=== PATIENT | female | born 1990 | race Caucasian/White ===

== ENCOUNTER 2017-02-07 14:06 | Emergency (ER) | payer BC, MEDICAID ==
[~2017-02-07] VITALS: Ht 170.2 cm; Wt 65.8 kg
[~2017-02-07 14:06] MED LIST: BIRTH CONTROL; HYDR-3812 PO; HYDR1CAP2; MDR10T PO
[2017-02-07 14:36] LABS: BILIRUBIN,URINE NEGATIVE (NEGATIVE); KETONES,URINE NEGATIVE (NEGATIVE); LEUKOCYTE ESTERASE ,URINE 2+ (NEGATIVE); NITRITE,URINE POSITIVE (NEGATIVE); PH,URINE 7 (5-9); PROTEIN,URINE 2+ (NEGATIVE); UROBILINOGEN,URINE NORMAL (NORMAL)
[2017-02-07 14:42] LABS: SQUAMOUS EPITHELIAL CELL,UR RARE /HPF; WBC,URINE 0-2 /HPF
[2017-02-07] MEDS ORDERED: CEPH500T PO (15:29)
[2017-02-07] MEDS ORDERED: METR500T21 PO (15:29)
--- NOTE | 2017-02-07 15:29 | ED GU-Female ---
General Chief Complaint: Abdominal/GI Problems Stated Complaint: PELVIC/ABD PAIN, CRAMPS Nursing Triage Note: c/o low abd pain with chills/nausea. Onset yesterday. Had vaginal discharge. Pt unsure if she started her menstrual cycle. Nursing Sepsis Screen: No Definite Risk Source: patient Exam Limitations: no limitations History of Present Illness Time seen by provider: 14:50 Initial Comments Here with report of chills and nausea. Had some suprapubic pain and some vaginal discharge with a little blood. She is not sure she started her period but states it never feels like this. Had a woman's health exam a few months ago and did not have any sexually-transmitted diseases. She has a single partner and they do not use condoms. She does not believe she has sexually- transmitted disease. Unsure about . Denies vomiting. Denies pain with urination. Denies difficulties with bowel movements. Timing/Duration: yesterday Severity/Quality: moderate, aching Location: suprapubic Radiation: none Activities at Onset: none Sexual [place] History: less than 2 months ago, single partner Associated Symptoms: abdominal pain, No fever/chills, No lower back pain, nausea/vomiting, No urinary frequency Allergies and Home Medications Allergies Coded Allergies: No Known Drug Allergies (Unverified , 03/05/09) Home Medications Hydrocodone/Acetaminophen 1 Each Tablet, 1-2 EACH PO Q6H PRN for PAIN, #12 Prescribed by: KRISSY GARCIA on 07/15/15 1300 Constitutional: see HPI, chills, No fever EENTM: no symptoms reported Respiratory: no symptoms reported Cardiovascular: no symptoms reported Gastrointestinal: see HPI Genitourinary: see HPI, discharge : No Musculoskeletal: no symptoms reported, No back pain, No muscle pain Skin: No lesions, No rash Past Hajchle-Audtes-Dracnt Hx Patient Social History Alcohol Use: Denies Use Recreational Drug Use: No Smoking Status: Current Everyday Smoker Recent Foreign Travel: No Contact w/Someone Who Travel: No Recent Infectious Disease Expo: No Recent Hopitalizations: Yes Surgeries History of Surgeries: Yes (tonsilectomy) Respiratory History of Respiratory Disorde: No Cardiovascular History of Cardiac Disorders: No Neurological History of Neurological Disord: No Reproductive System Hx Reproductive Disorders: No Sexually Transmitted Disease: No Gastrointestinal History of Gastrointestinal Di: No Musculoskeletal History of Musculoskeletal Dis: No Endocrine History of Endocrine Disorders: No Psychosocial History of Psychiatric Problem: No Blood Transfusions History of Blood Disorders: No Reviewed Nursing Assessment Reviewed/Agree w Nursing PMH: Yes Physical Exam Vital Signs Vital Sign - Last 12Hours 02/07/17 14:35 Temp 99.5 Pulse 90 Resp 16 B/P (MAP) 145/84 Pulse Ox 98 O2 Delivery Room Air Capillary Refill : Less Than 3 Seconds General Appearance: WD/WN, no apparent distress Neck: full range of motion, supple Cardiovascular: regular rate, rhythm, no murmur Respiratory: lungs clear, normal breath sounds Gastrointestinal: soft, tenderness (suprapubic) Pelvic: other (patient declined pelvic exam) Extremities: normal range of motion, non-tender Neurologic/Psychiatric: alert, oriented x 3 Skin: normal color, warm/dry Progress/Results/Core Measures Results/Orders Lab Results Laboratory Tests Test 02/07/17 14:30 Range/Units Urine Color RED H Urine Clarity BLOODY H Urine pH 7 5-9 Urine Specific [employer] 1.010 L 1.016-1.022 Urine Protein 2+ H NEGATIVE Urine Glucose (UA) NEGATIVE NEGATIVE Urine Ketones NEGATIVE NEGATIVE Urine Nitrite POSITIVE H NEGATIVE Urine Bilirubin NEGATIVE NEGATIVE Urine Urobilinogen NORMAL NORMAL MG/DL Urine Leukocyte Esterase 2+ H NEGATIVE Urine RBC (Auto) 5+ H NEGATIVE Urine RBC TNTC H /HPF Urine WBC 0-2 /HPF Urine Squamous Epithelial Cells RARE /HPF Urine Crystals NONE /LPF Urine Bacteria NEGATIVE /HPF Urine Casts NONE /LPF Urine Mucus NEGATIVE /LPF Urine Culture Indicated NO My Orders Orders - KRISSY GARCIA MD Ua Culture If Indicated (02/07/17 14:30) Urine Bedside (02/07/17 14:31) Urine Culture (02/07/17 15:18) Vital Signs/I&O Vital Sign - Last 12Hours 02/07/17 14:35 Temp 99.5 Pulse 90 Resp 16 B/P (MAP) 145/84 Pulse Ox 98 O2 Delivery Room Air Blood Pressure Mean: 104 Point of Care Testing Urine -Bedside: Negative Progress Note : Progress Note Seen and evaluated. UA and UCG ordered. UCG negative. UA is nitrite positive with some blood. There are no whites or bacteria on this urine sample although I am suspicious that there is a urinary tract infection. I did discuss with the patient about my concerns related to possible pelvic infection. She has declined pelvic and has elected to defer until she sees her doctor on Thursday. She will call Dr. Hernández on Thursday morning for appointment. This is reasonable given the relatively new onset of this concern but patient may likely need a pelvic exam to rule out further pelvic pathology. This is discussed with the patient and she agrees and understands and will follow up with her doctor. In the interim we will start her on Keflex for urinary tract infection and Flagyl as this may be bacterial vaginosis. Discharged home with return precautions. Patient verbalize understanding instructions and agreement with plan. Departure Impression Impression: Primary Impression: Urinary tract infection Qualified Codes: N30.01 - Acute cystitis with hematuria Disposition: HOME, SELF-CARE Condition: Improved Departure-Patient Inst. Decision time for Depature: 15:27 Referrals: ABBY HERNÁNDEZ MD (PCP/Family) Primary Care Physician Patient Instructions: Bacterial Vaginosis (DC), Urinary Tract Infection, Adult (DC) Add. Discharge Instructions: All discharge instructions reviewed with patient and/or family. Voiced understanding. Take medications as directed. Drink plenty of fluids. You may take Tylenol 1000 mg every 8 hours as needed for pain. You may take ibuprofen 800 mg every 8 hours as needed for pain. Follow-up with Dr. Hernández on Thursday. Return for worse pain, fever, vomiting, weakness, breathing problems or other concerns as needed. Scripts Metronidazole (Metronidazole) 500 Mg Tablet 500 MG PO BID, #14 TAB 0 Refills Prov: KRISSY GARCIA MD 02/07/17 Cephalexin (Cephalexin) 500 Mg Tablet 500 MG PO BID, #14 TAB 0 Refills Prov: KRISSY GARCIA MD 02/07/17 Copy Copies To 1: ABBY HERNÁNDEZ MD, TIMOTHY D MD Feb 07, 2017 15:29
[2017-02-07 15:54] VITALS: BP 116/70
== END 2017-02-07 15:54 | disposition home or self-care (01) ==
LOC: EDUNIT# 14:06 → ER 14:07
DX: N39.0 Urinary tract infection, site not specified (principal); F17.210 Nicotine dependence, cigarettes, uncomplicated; Z90.89 Acquired absence of other organs
CPT/HCPCS: 81000; 84703; 87088; 99282

== ENCOUNTER 2017-11-24 12:26 | Outpatient (CLI) | payer BC, MEDICAID ==
[~2017-11-24] VITALS: Ht 167.6 cm; Wt 82.3 kg
[~2017-11-24 12:26] MED LIST changes: +ACHD5005 PO; +CEPH500T PO; -HYDR-3812 PO; +METR500T21 PO
[2017-11-24 12:35] VITALS: BP 132/89
[2017-11-24] MEDS ORDERED: PREN1TAB86 PO (13:06)
--- NOTE | 2017-11-26 10:22 | Physician Query-Final Dx ---
[facility] 11/26/17 1022: Clinic Account Progress/Dx Physician Query: Please give diagnosis Date of Service Nov 24, 2017 at 12:26 MATTHEW JAY MD 11/27/17 1153: Clinic Account Progress/Dx DIAGNOSIS: Diagnosis false labor [facility] Nov 26, 2017 10:22 MATTHEW JAY MD Nov 27, 2017 11:53
== END 2017-11-24 13:17 | disposition home or self-care (01) ==
LOC: LDRP 12:26 → WSo 12:26
PROVIDERS: ATTEND Obstetrics & Gynecology
DX: O47.03 False labor before 37 completed weeks of gestation, third trimester (principal); Z3A.34 34 weeks gestation of pregnancy
CPT/HCPCS: 99212

== ENCOUNTER 2017-12-22 11:24 | Outpatient (CLI) | payer BC, MEDICAID ==
[~2017-12-22] VITALS: Ht 167.6 cm; Wt 82.6 kg
[~2017-12-22 11:24] MED LIST changes: +PREN1TAB86 PO
[2017-12-22 11:46] VITALS: BP 130/86
[2017-12-26] MEDS ORDERED: DOCU100C37 PO (09:13)
[2017-12-26] MEDS ORDERED: OXYC-465 PO (09:13)
[2017-12-26] MEDS ORDERED: IBUP-1780 PO (09:13)
== END 2017-12-22 11:45 | disposition home or self-care (01) ==
LOC: PREOP 11:24
PROVIDERS: ATTEND Obstetrics & Gynecology
DX: Z01.818 Encounter for other preprocedural examination (principal)
CPT/HCPCS: 87081

== ENCOUNTER 2017-12-25 11:05 | Inpatient (IN) | payer BC, MEDICAID ==
[~2017-12-25] VITALS: Ht 165.1 cm; Wt 83.0 kg
[2017-12-25 11:10] VITALS: BP 143/75
--- OUTSIDE RECORDS SUMMARY | 2017-12-25 11:14 | XMS REPORT | Continuity of Care Document ---
Author Author [facility] Organization [facility] Address Unknown Phone Unavailable Allergies Active Description Code Type Severity Reaction Onset Reported/Identified Relationship to Patient Clinical Status Yes No Known Drug Allergies [id number] Drug Allergy Mild N/A 03/05/2009 Medications There is no data. Problems Date Dx Coded Attending Type Code Diagnosis Diagnosed By 09/16/2009 Ot 641.21 JOHN SEPAR PLACEN-DELIV 09/16/2009 Ot 659.71 ABN DEL FET HT RT/RHYTHM,W OR W/O MENTIO 09/16/2009 Ot V27.0 DELIVER- SINGLE LIVEBORN 10/27/2009 Ot 623.8 10/27/2009 Ot 666.24 05/30/2014 Ot 685.1 05/30/2014 Ot V72.83 05/30/2014 Ot V74.8 05/30/2014 Ot 685.0 05/30/2014 Ot 649.63 05/30/2014 Ot 649.63 05/30/2014 Ot 649.63 05/30/2014 Ot 685.1 05/30/2014 Ot V72.83 05/30/2014 Ot V74.8 05/30/2014 Ot 685.1 10/19/2014 Ot 649.63 10/19/2014 Ot 649.63 10/19/2014 Ot 685.1 10/19/2014 Ot V72.83 10/19/2014 Ot V74.8 10/19/2014 Ot 685.1 10/24/2014 DOROTA GREER, KEYSHAWN Narayan Ot 724.2 10/24/2014 DOROTA GREER, KEYSHAWN Narayan Ot 780.79 10/24/2014 DOROTA GREER, KEYSHAWN Narayan Ot V18.0 11/03/2014 DOROTA GREER, KEYSHAWN Narayan Ot 724.2 11/03/2014 DOROTA GREER, KEYSHAWN Narayan Ot 780.79 11/03/2014 KEYSHAWN RAYA MD Ot V18.0 11/20/2014 Ot 649.63 11/20/2014 Ot 649.63 11/20/2014 Ot 685.1 11/20/2014 Ot V72.83 11/20/2014 Ot V74.8 11/20/2014 Ot 685.1 11/20/2014 DOROTA GREER, KEYSHAWN Narayan Ot 724.2 11/20/2014 DOROTA GREER, KEYSHAWN Narayan Ot 780.79 11/20/2014 DOROTA GREER, KEYSHAWN Narayan Ot V18.0 01/02/2015 DOROTA GREER, KEYSHAWN Narayan Ot 722.52 LUMB/LUMBOSAC DISC DEGEN 01/02/2015 DOROTA GREER, KEYSHAWN Narayan Ot V57.1 PHYSICAL THERAPY NEC 06/13/2015 DOROTA GREER, KEYSHAWN Narayan Ot 724.2 06/13/2015 DOROTA GREER, KEYSHAWN Narayan Ot 780.79 06/13/2015 DOROTA GREER, KEYSHAWN Narayan Ot V18.0 06/29/2015 DOROTA GREER, KEYSHAWN Narayan Ot 724.2 06/29/2015 KEYSHAWN RAYA MD Ot 780.79 06/29/2015 DOROTA GREER, KEYSHAWN Narayan Ot V18.0 07/15/2015 DOROTA GREER, KEYSHAWN Narayan Ot 724.2 07/15/2015 DOROTA GREER, KEYSHAWN Narayan Ot 780.79 07/15/2015 KEYSHAWN RAYA MD Ot V18.0 07/15/2015 KRISSY GARCIA MD Ot E86.9 VOLUME DEPLETION, UNSPECIFIED 07/15/2015 KRISSY GARCIA MD Ot E87.6 HYPOKALEMIA 07/15/2015 KRISSY GARCIA MD Ot F17.210 NICOTINE DEPENDENCE, CIGARETTES, UNCOMPL 07/15/2015 KRISSY GARCIA MD Ot J06.9 ACUTE UPPER RESPIRATORY INFECTION, UNSPE 07/15/2015 KEYSHAWN RAYA MD Ot 724.2 07/15/2015 KEYSHAWN RAYA MD Ot 780.79 07/15/2015 KEYSHAWN RAYA MD Ot V18.0 07/17/2015 KRISSY GARCIA MD Ot E86.9 07/17/2015 KRISSY GARCIA MD Ot E87.6 07/17/2015 KRISSY GARCIA MD Ot F17.210 07/17/2015 KRISSY GARCIA MD Ot J06.9 07/17/2015 KEYSHAWN RAYA MD Ot 724.2 07/17/2015 KEYSHAWN RAYA MD Ot 780.79 07/17/2015 DOROTA GREER, KEYSHAWN Narayan Ot V18.0 07/17/2015 DOROTA GREER, KEYSHAWN Narayan Ot 724.2 07/17/2015 DOROTA GREER, KEYSHAWN Narayan Ot 780.79 07/17/2015 DOROTA GREER, KEYSHAWN Narayan Ot V18.0 07/31/2015 DOROTA GREER, KEYSHAWN Narayan Ot 724.2 07/31/2015 DOROTA GREER, KEYSHAWN Narayan Ot 780.79 07/31/2015 DOROTA GREER, KEYSHAWN Narayan Ot V18.0 08/01/2015 DOROTA GREER, KEYSHAWN Narayan Ot M54.5 08/16/2015 DOROTA GREER, KEYSHAWN Narayan Ot M54.5 LOW BACK PAIN 12/25/2015 DOROTA GREER, KEYSHAWN Narayan Ot 724.2 LUMBAGO 12/25/2015 DOROTA GREER, KEYSHAWN Narayan Ot 780.79 OTH MALAISE FATIGUE 12/25/2015 DOROTA GREER, KEYSHAWN Narayan Ot V18.0 FAM HX-DIABETES MELLITUS 12/25/2015 DOROTA GREER, KEYSHAWN Narayan Ot M54.5 LOW BACK PAIN 12/27/2015 INEZ CROWDER DO Ot M54.16 RADICULOPATHY, LUMBAR REGION 01/09/2016 INEZ CROWDER DO Ot M54.16 RADICULOPATHY, LUMBAR REGION 01/09/2016 DOROTA GREER, KEYSHAWN Narayan Ot 724.2 LUMBAGO 01/09/2016 DOROTA GREER, KEYSHAWN Narayan Ot 780.79 OTH MALAISE FATIGUE 01/09/2016 DOROTA GREER, KEYSHAWN Narayan Ot V18.0 FAM HX-DIABETES MELLITUS 01/09/2016 DOROTA GREER, KEYSHAWN Narayan Ot M54.5 LOW BACK PAIN 01/09/2016 INEZ CROWDER DO Ot M54.16 RADICULOPATHY, LUMBAR REGION 01/14/2016 DOROTA GREER, KEYSHAWN Narayan Ot 724.2 LUMBAGO 01/14/2016 DOROTA GREER, KEYSHAWN Narayan Ot 780.79 OTH MALAISE FATIGUE 01/14/2016 DOROTA GREER, KEYSHAWN Narayan Ot V18.0 FAM HX-DIABETES MELLITUS 01/14/2016 DOROTA GREER, KEYSHAWN Narayan Ot M54.5 LOW BACK PAIN 01/14/2016 INEZ CROWDER DO Ot M54.16 RADICULOPATHY, LUMBAR REGION 01/17/2016 DOROTA GREER, KEYSHAWN Narayan Ot 724.2 LUMBAGO 01/17/2016 DOROTA GREER, KEYSHAWN Narayan Ot 780.79 OTH MALAISE FATIGUE 01/17/2016 KEYSHAWN RAYA MD Ot V18.0 FAM HX-DIABETES MELLITUS 01/17/2016 KEYSHAWN RAYA MD Ot M54.5 LOW BACK PAIN 01/17/2016 LAKESHA INEZ YE Ot M54.16 RADICULOPATHY, LUMBAR REGION 03/19/2016 KEYSHAWN RAYA MD Ot 724.2 LUMBAGO 03/19/2016 KEYSHAWN RAYA MD Ot 780.79 OTH MALAISE FATIGUE 03/19/2016 KEYSHAWN RAYA MD Ot V18.0 FAM HX-DIABETES MELLITUS 03/19/2016 KEYSHAWN RAYA MD Ot M54.5 LOW BACK PAIN 03/19/2016 INEZ CROWDER DO Ot M54.16 RADICULOPATHY, LUMBAR REGION 03/20/2016 EDGAR GREER, ABBY C Ot N64.4 MASTODYNIA 03/20/2016 ABBY HERNÁNDEZ MD C Ot N64.4 MASTODYNIA 04/02/2016 EDGAR GREER, ABBY C Ot N64.4 MASTODYNIA 02/07/2017 KEYSHAWN RAYA MD Ot 724.2 LUMBAGO 02/07/2017 KEYSHAWN RAYA MD Ot 780.79 OTH MALAISE FATIGUE 02/07/2017 KEYSHAWN RAYA MD Ot V18.0 FAM HX-DIABETES MELLITUS 02/07/2017 KEYSHAWN RAYA MD Ot M54.5 LOW BACK PAIN 02/07/2017 INEZ CROWDER DO Ot M54.16 RADICULOPATHY, LUMBAR REGION 02/07/2017 EDGAR GREER, ABBY C Ot N64.4 MASTODYNIA 02/07/2017 KRISSY GARCIA MD Ot F17.210 NICOTINE DEPENDENCE, CIGARETTES, UNCOMPL 02/07/2017 KRISSY GARCIA MD Ot N39.0 URINARY TRACT INFECTION, SITE NOT SPECIF 02/07/2017 KRISSY GARCIA MD Ot R11.0 NAUSEA 02/07/2017 KRISSY GARCIA MD Ot Z90.89 ACQUIRED ABSENCE OF OTHER ORGANS 04/28/2017 KEYSHAWN RAYA MD Ot 724.2 LUMBAGO 04/28/2017 KEYSHAWN RAYA MD Ot 780.79 OTH MALAISE FATIGUE 04/28/2017 KEYSHAWN RAYA MD Ot V18.0 FAM HX-DIABETES MELLITUS 04/28/2017 KEYSHAWN RAYA MD Ot M54.5 LOW BACK PAIN 04/28/2017 INEZ CROWDER DO Ot M54.16 RADICULOPATHY, LUMBAR REGION 04/28/2017 EDGAR GREER, ABBY Ko Ot N64.4 MASTODYNIA 07/12/2017 KEYSHAWN RAYA MD Ot 724.2 LUMBAGO 07/12/2017 KEYSHAWN RAYA MD Ot 780.79 OTH MALAISE FATIGUE 07/12/2017 KEYSHAWN RAYA MD Ot V18.0 FAM HX-DIABETES MELLITUS 07/12/2017 KEYSHAWN RAYA MD Ot M54.5 LOW BACK PAIN 07/12/2017 LAKESHA INEZ Ot M54.16 RADICULOPATHY, LUMBAR REGION 07/12/2017 EDGAR GREER, ABBY Ko Ot N64.4 MASTODYNIA 11/03/2017 KEYSHAWN RAYA MD Ot 724.2 LUMBAGO 11/03/2017 KEYSHAWN RAYA MD Ot 780.79 OTH MALAISE FATIGUE 11/03/2017 KEYSHAWN RAYA MD Ot V18.0 FAM HX-DIABETES MELLITUS 11/03/2017 KEYSHAWN RAYA MD Ot M54.5 LOW BACK PAIN 11/03/2017 LAKESHA DO INEZ Chris Ot M54.16 RADICULOPATHY, LUMBAR REGION 11/03/2017 EDGAR GREER, ABBY Ko Ot N64.4 MASTODYNIA Procedures Code Description Performed By Performed On 74.1 LOW CERVICAL 09/14/2009 Results Test Result Range Complete urinalysis with reflex to culture - 02/07/17 14:30 Urine color determination RED NRG Urine clarity determination BLOODY NRG Urine pH measurement by test strip 7 5-9 Specific gravity of urine by test strip 1.010 1.016- 1.022 Urine protein assay by test strip, semi-quantitative 2+ NEGATIVE Urine glucose detection by automated test strip NEGATIVE NEGATIVE Erythrocytes detection in urine sediment by light microscopy 5+ NEGATIVE Urine ketones detection by automated test strip NEGATIVE NEGATIVE Urine nitrite detection by test strip POSITIVE NEGATIVE Urine total bilirubin detection by test strip NEGATIVE NEGATIVE Urine urobilinogen measurement by automated test strip (mass/volume) NORMAL NORMAL Urine leukocyte esterase detection by dipstick 2+ NEGATIVE Automated urine sediment erythrocyte count by microscopy (number/high power field) TNTC NRG Automated urine sediment leukocyte count by microscopy (number/high power field ) [HPF] NRG Bacteria detection in urine sediment by light microscopy NEGATIVE NRG Squamous epithelial cells detection in urine sediment by light microscopy RARE NRG Crystals detection in urine sediment by light microscopy NONE NRG Casts detection in urine sediment by light microscopy NONE NRG Mucus detection in urine sediment by light microscopy NEGATIVE NRG Complete urinalysis with reflex to culture NO NRG Bacterial urine culture - 02/07/17 14:30 URINE CULTURE RESULTS MORE THAN 3 ISOLATES NRG Encounters ACCT No. Visit Date/Time Discharge Status Pt. Type Provider Facility Loc./Unit Complaint [id number] 02/07/2017 14:07:00 02/07/2017 15:54:00 DIS Emergency KRISSY GARCIA MD [facility] ER PELVIC/ABD PAIN, CRAMPS [id number] 03/19/2016 14:00:00 03/19/2016 23:59:59 CLS Outpatient ABBY HERNÁNDEZ MD [facility] RAD LT OUTER ASPECT BREAST PAIN [id number] 12/25/2015 11:13:00 12/25/2015 23:59:59 CLS Outpatient INEZ CROWDER DO [facility] RAD RADICULOPATHY [id number] 07/31/2015 12:43:00 07/31/2015 23:59:59 CLS Outpatient KEYSHAWN RAYA MD [facility] RAD LOW BACK PAIN,UPPER BACK PAIN [id number] 07/15/2015 09:22:00 07/15/2015 13:10:00 DIS Emergency KRISSY GARCIA MD [facility] ER FLU SYMPTOMS [id number] 12/11/2014 08:29:00 01/02/2015 09:35:00 DIS Outpatient KEYSHAWN RAYA MD [facility] REHAB LOW BACK PAIN;DDD; NARROWING L1-2 L2-3 [id number] 10/19/2014 10:16:00 10/19/2014 23:59:59 CLS Outpatient KEYSHAWN RAYA MD [facility] RAD LOW BACK PAIN,PRESSURE, FATIGUE,FAM HX DIABETES [id number] 12/28/2017 13:00:00 PEN Preadmit PIERRE GREER, MATTHEW Boudreaux PREVIOUS [id number] 05/30/2014 09:04:00 Document Registration [id number] 11/13/2009 05:44:00 Document Registration [id number] 11/09/2009 08:10:00 Document Registration [id number] 10/26/2009 20:06:00 Document Registration [id number] 09/14/2009 12:11:00 Document Registration [id number] 08/02/2009 13:51:00 Document Registration [id number] 06/14/2009 14:47:00 Document Registration [id number] 03/20/2009 13:51:00 Document Registration [id number] 03/05/2009 09:42:00 Document Registration [id number] 02/06/2009 16:22:00 Document Registration [id number] 12/11/2014 08:29:14 ACT Document Registration
[2017-12-25] MEDS ORDERED: OXYTOCIN/NORMAL SALINE 500 ML IV ONE ×2 (11:26→12:51)
[2017-12-25] MEDS ORDERED: BUPIVACAINE SPINAL 0.75% (SENSORCAINE) 2 ML AMP ONE (11:26)
[2017-12-25] MEDS ORDERED: LIDOCAINE PF 2% 5 ML (XYLOCAINE) VIAL ONE (11:26)
[2017-12-25] MEDS ORDERED: ceFAZolin 2 GM IV Premixed 50 ML ONE (11:27)
[2017-12-25] MEDS ORDERED: metroNIDAZOLE 500MG/100ML IVPB 100 ML ONE (11:27)
[2017-12-25] MEDS ORDERED: CITRIC ACID/SOB CIT (BICITRA) 30 ML UDC ONE (11:27)
[2017-12-25] MEDS ORDERED: raNItidine 50 MG/2 ML INJ (ZANTAC) ONE (11:27)
[2017-12-25] MEDS ORDERED: raNItidine INJECTION 50 MG in NS (IVPB) 50 ML IV ONE (11:30)
[2017-12-25] MEDS ORDERED: ceFAZolin 2 GM IV Premixed 50 ML IV ONE ×3 (11:30→12:15)
[2017-12-25] MEDS ORDERED: CITRIC ACID/SOB CIT (BICITRA) 30 ML UDC PO ONE (11:30)
[2017-12-25] MEDS ORDERED: metroNIDAZOLE 500MG/100ML IVPB 100 ML IV ONE ×3 (11:30→12:15)
[2017-12-25] MEDS ORDERED: CATHETER FLUSH 10 ML SYR IV PRN (11:30)
[2017-12-25] MEDS ORDERED: METOCLOPRAMIDE INJ 10 MG/2 ML (REGLAN) IV ONE (11:30)
[2017-12-25 11:31] LABS: BASOPHILS % (AUTO) 0 % (0-10); EOSINOPHILS # (AUTO) 0.2 10^3/uL (0.0-0.3); EOSINOPHILS % (AUTO) 1 % (0-10); HEMATOCRIT 39 % (35-52); LYMPHOCYTES # (AUTO) 2.9 X 10^3 (1.0-4.0); LYMPHOCYTES % (AUTO) 13 % (12-44); MEAN CORPUSCULAR HEMOGLOBIN 32 PG (25-34); MEAN CORPUSCULAR HGB CONC 36 G/DL (32-36); MEAN CORPUSCULAR VOLUME 89 FL (80-99); MEAN PLATELET VOLUME 12.6 FL (7.4-10.4); MONOCYTES # (AUTO) 1.7 X 10^3 (0.0-1.0); MONOCYTES % (AUTO) 8 % (0-12); NEUTROPHILS # (AUTO) 17.1 X 10^3 (1.8-7.8); NEUTROPHILS % (AUTO) 78 % (42-75); PLATELET COUNT 293 10^3/uL (130-400); RED BLOOD COUNT 4.42 10^6/uL (4.35-5.85); RED CELL DISTRIBUTION WIDTH 13.6 % (10.0-14.5); WHITE BLOOD COUNT 21.8 10^3/uL (4.3-11.0)
[2017-12-25] MEDS ORDERED: fentaNYL INJECTION 100 MCG/2 ML AMP ONE (11:31)
[2017-12-25] MEDS ORDERED: NS (IVPB) 50 ML ONE (11:33)
[2017-12-25] MEDS: LACTATED RINGERS 1,000 ML IV PRN ×2 (11:37→12:30)
[2017-12-25 11:40] VITALS: BP 123/81
[2017-12-25 11:59] LABS: BAND NEUTROPHILS 0 %; BASOPHILS % (MANUAL) 0 %; EOSINOPHILS % (MANUAL) 0 %; LYMPHOCYTES % (MANUAL) 8 %; MONOCYTES % (MANUAL) 3 %; NEUTROPHILS % (MANUAL) 84 %
[2017-12-25 12:00] LABS: RBC MORPH NORMAL; REACTIVE LYMPHOCYTES 5 %
[2017-12-25] MEDS ORDERED: MEASLES,MUMPS,RUBELLA 1 EA INJ SC ONE (12:15)
[2017-12-25] MEDS ORDERED: ONDANSETRON 4 MG/2 ML (SDV) Z0FRAN IVP PRN ×2 (12:15→13:30)
[2017-12-25] MEDS ORDERED: PROMETHAZINE INJ 25 MG/ML (PHENERGAN) AMP IM PRN (12:15)
[2017-12-25] MEDS ORDERED: TETANUS,DIPTH,PERTUSS P/F (BOOSTRIX) 0.5 ML VIAL IM ONE (12:15)
[2017-12-25] MEDS ORDERED: MEPERIDINE (DEMEROL) INJ 100 MG/ML IM PRN (12:15)
[2017-12-25] MEDS ORDERED: LACTATED RINGERS 1,000 ML IV SCH (12:15)
[2017-12-25] MEDS ORDERED: D5 LR IV SOLUTION 1,000 ML IV ONE (12:19)
--- NOTE | 2017-12-25 12:19 | History & Physical ---
History and Physical Date Seen by Provider: Dec 25, 2017 Time Seen by Provider: 12:16 This patient is a 27-year-old 1 white female presented to my clinic with late of contractions pain and pressure and a sensation of tearing above her pubic bone. 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 She denied ruptured membranes or bleeding. She had been scheduled for tooth extraction secondary to a dental abscess but has not had that done as of yet. NST was performed in my clinic with findings of contractions every 1-3 minutes. Her cervix was dilated to 2+ centimeters which was a change from her exam 2 days prior. Patient had GBS culture that was negative after 35 weeks gestation. Patient was sent to labor and delivery for management. Allergies are none Medications are vitamins and an oral antibiotic for dental abscess Social surgical histories are per the antepartum record HEENT exam is normal Neck is supple no lymphadenopathy no thyromegaly Abdomen gravid soft nontender nondistended Extremities show no clubbing cyanosis. There is no Homans sign. Pelvic exam repeat now shows a cervix almost 3 cm dilated still 70 percent effaced and 0 to -1 station with bloody show. monitor normal heart rate pattern with occasional contractions every 2 minutes Laboratory Tests 12/25/17 11:20 Patient white blood cell count is elevated Assessment and plan term at 38-5/7 weeks' gestation in patient with dental abscess and elevated white blood cell count. She is having regular contractions and is at risk for uterine rupture and that could be an ongoing process with the complaint of the tearing sensation above her pubic bone. She has some bloody show this is probably from dilation although it could be from uterine scar dehiscence as well. Patient has eaten in less than 8 hours anesthesia expression patient about that have her presentation her constellation of symptoms and signs I requested that would be allowed to proceed with delivery and accepted the risks of not having a full 8 hours of being prior to anesthetic and delivery. Term 38-5/7 weeks' gestation with leukocytosis/dental abscess/labor/ previous Allergies and Home Medications Allergies Coded Allergies: No Known Drug Allergies (Unverified , 03/05/09) Home Medications Vit W-Ca,Fe,FA(<1 mg) 1 Each Tablet, 1 EACH PO DAILY, (Reported) Patient Home Medication List Home Medication List Reviewed: Yes Clinical Quality Measures DVT/VTE Risk/Contraindication: Risk Factor Score Per Nursin RFS Level Per Nursing on Admit: 2=Moderate MATTHEW JAY MD Dec 25, 2017 12:19 pm
[2017-12-25] MEDS ORDERED: ONDANSETRON 4 MG/2 ML (SDV) Z0FRAN ONE (12:38)
[2017-12-25] MEDS ORDERED: GLYCOPYRROLATE 0.2 MG/ML (ROBINUL) 2 ML VIAL ONE (12:38)
[2017-12-25] MEDS ORDERED: PHENYLEPHRINE 100 MCG/ML 10 ML (ANESTHESIA) SYR ONE (12:47)
[2017-12-25] MEDS ORDERED: ROPIVACAINE 5MG/ML 30ML VIAL ONE (12:57)
[2017-12-25] MEDS ORDERED: MEPERIDINE (DEMEROL) INJ 50 MG/ML IVP ONE (13:30)
[2017-12-25] MEDS ORDERED: fentaNYL INJECTION 100 MCG/2 ML AMP IVP ONE (13:30)
[2017-12-25] MEDS ORDERED: HYDROmorphone 2 MG/ML VIAL (DILAUDID) IV ONE (13:30)
--- NOTE | 2017-12-25 13:34 | OPERATIVE REPORT ---
DATE OF SERVICE: 12/25/2017 PREOPERATIVE DIAGNOSES: Term at 38 and 5/7 weeks' gestation with previous , suspicion for uterine scar, dehiscence, dental abscess and leukocytosis with a white count of 21,000. POSTOPERATIVE DIAGNOSES: Term at 38 and 5/7 weeks' gestation with previous , suspicion for uterine scar dehiscence, dental abscess and leukocytosis with a white count of 21,000 with confirmed uterine scar dehiscence. OPERATIVE PROCEDURE: Repeat low transverse delivery of a viable female infant with Apgars of 8 and 9 at 1 and 5 minutes respectively, weight of 6 pounds and 15 ounces, cord blood pH of 7.26 and a time of 12:34. Operative procedure included repair of the uterine transverse scar and dehiscence. OPERATIVE DESCRIPTION: With the patient in supine position under satisfactory spinal analgesia, the patient was prepped and draped in the usual fashion for abdominal surgery. Pérez catheter placed in the urinary bladder. A repeat Pfannenstiel incision was made through skin with scalpel by removing the patient's previous Pfannenstiel incisional scar. The abdomen was entered in the usual manner. Bladder retractor placed in position, clean scalpel used to make a 4 cm hysterotomy incision transversely across the lower uterine segment that was extended by blunt dissection as well. Copious clear fluid was released on hysterotomy. There was some blood external to the membranes at the time of the incision that was not from the incision. A vigorous viable female was delivered via the uterine incision. There was a double nuchal cord that was easily released after delivery of the head. The delivery was completed atraumatically. Infant was bulb suctioned on delivery of the head and again on completion of delivery, the umbilical cord was doubly clamped and cut and the passed to the pediatric nurse in attendance for delivery. Cord bloods were obtained. Placenta delivered spontaneously promptly. It was Dahl with a 3-vessel cord. The uterine cavity was examined after exteriorizing the uterus. The cavity was cleaned. There was a 4 cm separation in the lower uterine segment anteriorly transversely across the anterior cervix from the previous incision that was beginning to dehisce. This was reapproximated and closed with a running locked suture of 2-0 Vicryl. With that reapproximated properly, the hysterotomy incision was then closed also with a 2-0 Vicryl suture in a running locked fashion. Hemostasis was complete. The uterus was returned to the abdominal cavity. All blood clot and debris removed from the abdominal cavity. With sponge and needle counts correct, hemostasis assured, the anterior parietal peritoneum was closed with a running suture of 2-0 Vicryl. The rectus muscles were closed with that same suture. The rectus fascia was closed with 2-0 Vicryl, subcutaneous tissue was closed with 2-0 Vicryl and the skin was stapled. Sponge and needle counts were correct on completion of the delivery. The patient was transferred to the recovery room in stable condition. The baby had been taken stable to the full term nursery. Estimated blood loss was around 400 mL. The patient tolerated the procedure well. Job ID: [id number] DocumentID: [id number] Dictated Date: 12/25/2017 13:01:13 Action Installer Date: 12/25/2017 13:33:45 Dictated By: MATTHEW JAY MD MTDD
[2017-12-25 14:30] VITALS: BP 120/71
[2017-12-25] MEDS: KETOROLAC 30 MG/ML VIAL IVP SCH ×2 (14:30→20:15)
[2017-12-25] MEDS: OXYTOCIN/NORMAL SALINE 500 ML IV SCH (14:30)
[2017-12-25] MEDS: CEPHALEXIN 250 MG (KEFLEX) CAP PO SCH (14:30)
[2017-12-25 16:45] VITALS: BP 114/66
[2017-12-25] MEDS: oxyCODONE/APAP 10/325MG (PERCOCET 10) TABLET PO PRN (18:22)
[2017-12-25] MEDS: D5 LR IV SOLUTION 1,000 ML IV SCH (18:43)
[2017-12-25] MEDS: ceFAZolin 2 GM IV Premixed 50 ML IV SCH (20:00)
[2017-12-25] MEDS: DOCUSATE SODIUM 100 MG (COLACE) CAP PO SCH (20:15)
[2017-12-25 20:49] VITALS: BP 113/73
[2017-12-26] MEDS: oxyCODONE/APAP 10/325MG (PERCOCET 10) TABLET PO PRN ×4 (00:49→23:04)
[2017-12-26 01:43] VITALS: BP 116/66
[2017-12-26] MEDS: KETOROLAC 30 MG/ML VIAL IVP SCH ×2 (01:43→08:31)
[2017-12-26] MEDS: ceFAZolin 2 GM IV Premixed 50 ML IV SCH ×3 (01:43→17:45)
[2017-12-26] MEDS: D5 LR IV SOLUTION 1,000 ML IV SCH (03:51)
[2017-12-26 06:04] LABS: BASOPHILS # (AUTO) 0.1 10^3/uL (0.0-0.1); BASOPHILS % (AUTO) 0 % (0-10); EOSINOPHILS # (AUTO) 0.2 10^3/uL (0.0-0.3); EOSINOPHILS % (AUTO) 1 % (0-10); HEMATOCRIT 32 % (35-52); HEMOGLOBIN 11.2 G/DL (11.5-16.0); LYMPHOCYTES # (AUTO) 3.3 X 10^3 (1.0-4.0); LYMPHOCYTES % (AUTO) 17 % (12-44); MEAN CORPUSCULAR HEMOGLOBIN 31 PG (25-34); MEAN CORPUSCULAR HGB CONC 35 G/DL (32-36); MEAN CORPUSCULAR VOLUME 90 FL (80-99); MEAN PLATELET VOLUME 12.6 FL (7.4-10.4); MONOCYTES # (AUTO) 1.7 X 10^3 (0.0-1.0); MONOCYTES % (AUTO) 8 % (0-12); NEUTROPHILS # (AUTO) 14.5 X 10^3 (1.8-7.8); NEUTROPHILS % (AUTO) 73 % (42-75); PLATELET COUNT 257 10^3/uL (130-400); RED BLOOD COUNT 3.58 10^6/uL (4.35-5.85); RED CELL DISTRIBUTION WIDTH 13.5 % (10.0-14.5); WHITE BLOOD COUNT 19.7 10^3/uL (4.3-11.0)
[2017-12-26] MEDS: DOCUSATE SODIUM 100 MG (COLACE) CAP PO SCH ×2 (07:52→20:23)
[2017-12-26] MEDS: CEPHALEXIN 250 MG (KEFLEX) CAP PO SCH ×5 (07:52→21:15)
[2017-12-26] MEDS: metroNIDAZOLE 500 MG (FLAGYL) TAB PO SCH ×4 (07:52→21:15)
[2017-12-26] MEDS: IBUPROFEN 800 MG (MOTRIN) TAB PO ONE ×2 (07:53→08:38)
[2017-12-26] MEDS: IBUPROFEN 800 MG (MOTRIN) TAB PO SCH ×3 (07:53→20:23)
[2017-12-26] MEDS: OXYTOCIN/NORMAL SALINE 500 ML IV SCH (08:36)
--- NOTE | 2017-12-26 09:08 | Progress Note-Standard ---
Standard Progress Note Progress Notes/Assess & Plan Date Seen by Provider: Dec 26, 2017 Time Seen by Provider: 09:07 Progress/Assessment & Plan This patient is without complaint. She is ambulating, voiding, tolerating oral intake well has good pain control. Patient denies chest pain, denies shortness of breath, denies nausea vomiting, denies headache. Vital Signs 12/26/17 01:43 Temp 98.4 Pulse 84 Resp 20 B/P (MAP) 116/66 (83) Pulse Ox 97 O2 Delivery Room Air Vital signs are stable. Patient afebrile. The abdomen is benign. Extremities show no clubbing cyanosis. There is no Homans sign. Assessment and plan postoperative day number 1 status post repeat delivery doing well. Plan is for routine convalescence care today and consider discharge home MATTHEW JAY MD Dec 26, 2017 9:08 am
[2017-12-26] MEDS ORDERED: OXYC-465 PO (09:13)
[2017-12-26] MEDS ORDERED: IBUP-1780 PO (09:13)
[2017-12-26] MEDS ORDERED: DOCU100C37 PO (09:13)
--- NOTE | 2017-12-26 09:14 | Discharge Instructions ---
Discharge Instructions Discharge Medications New, Converted or Re-Newed RX: RX on Chart Patient Instructions Patient Instructions: As directed Return to The Hospital For: As directed Activity & Diet Discharge Diet: No Restrictions Activity as Tolerated: No Orders-Post D/C & Referrals Follow Up Appt: RTC on Thursday, January 01, 2018 at 930 a.m. for incision check. Call to make follow up appt. for patient in 4 weeks. Wound Care: Remove eugenie, apply benzoin and steri strips. Activity Per routine post instructions. Please call in RX to patient pharmacy. Diet as tolerated Patient may shower or tub bathe as desired. Continue home meds MATTHEW JAY MD Dec 26, 2017 9:14 am
[2017-12-26 09:45] VITALS: BP 117/81
--- NOTE | 2017-12-26 10:23 | Anesthesia-Regional Post-Op ---
Regional Patient Condition Mental Status: Alert, Oriented x3 Circulation: Same as Pre-Op Headache: Absent Sensation: Full Recovery Motor Block: Absent Post Op Complications Complications None Follow Up Care/Instructions Patient Instructions None needed. Anesthesia/Patient Condition Patient is doing well, no complaints, stable vital signs, no apparent adverse anesthesia problems. No complications reported per nursing. SEB GLEASON CRNA Dec 26, 2017 10:23
[2017-12-26 16:00] VITALS: BP 132/85
[2017-12-26] MEDS ORDERED: MEASLES,MUMPS,RUBELLA 1 EA INJ SC ONE (18:00)
[2017-12-26 20:23] VITALS: BP 128/81
[2017-12-27 00:10] VITALS: BP 140/89
[2017-12-27 04:35] VITALS: BP 113/69
[2017-12-27] MEDS ORDERED: MEASLES,MUMPS,RUBELLA 1 EA INJ ONE (08:36)
[2017-12-27] MEDS ORDERED: TETANUS,DIPTH,PERTUSS P/F (BOOSTRIX) 0.5 ML VIAL IM ONE (08:36)
[2017-12-27 08:42] VITALS: BP 119/71
[2017-12-27] MEDS: CEPHALEXIN 250 MG (KEFLEX) CAP PO SCH ×2 (08:42→14:16)
[2017-12-27] MEDS: IBUPROFEN 800 MG (MOTRIN) TAB PO SCH ×2 (08:42→14:16)
[2017-12-27] MEDS: DOCUSATE SODIUM 100 MG (COLACE) CAP PO SCH (08:42)
[2017-12-27] MEDS: metroNIDAZOLE 500 MG (FLAGYL) TAB PO SCH ×2 (08:42→14:16)
--- NOTE | 2017-12-27 09:15 | Progress Note-Standard ---
Standard Progress Note Progress Notes/Assess & Plan Date Seen by Provider: Dec 27, 2017 Time Seen by Provider: 09:14 Progress/Assessment & Plan This patient is without complaint. She is ambulating, voiding, tolerating oral intake well has good pain control. Patient denies chest pain, denies shortness of breath, denies nausea vomiting, denies headache. Vital Signs 12/26/17 01:43 Temp 98.4 Pulse 84 Resp 20 B/P (MAP) 116/66 (83) Pulse Ox 97 O2 Delivery Room Air Vital signs are stable. Patient afebrile. The abdomen is benign. Extremities show no clubbing cyanosis. There is no Homans sign. Assessment and plan postoperative day number 1 status post repeat delivery doing well. Plan is for routine convalescence care today and consider discharge home December 27, 2017 Patient without white. She is ambulating, voiding, tolerating oral intake well has good pain control and is requesting discharge home Vital Signs 12/27/17 04:35 Temp 98.4 Pulse 70 Resp 20 B/P (MAP) 113/69 (84) Pulse Ox 98 O2 Delivery Room Air Vital signs are stable. Patient is afebrile. Fundus is firm below the umbilicus and nontender. Extremities show no clubbing cyanosis. There is no Homans sign. Assessment and plan postoperative day number 2 status post repeat delivery at 38+ weeks gestation. Patient is doing well and will be discharged home Final Diagnosis Term repeat delivery MATTHEW JAY MD Dec 27, 2017 9:15 am
[2017-12-27 14:16] VITALS: BP 132/85
[2017-12-27] MEDS: oxyCODONE/APAP 10/325MG (PERCOCET 10) TABLET PO PRN (14:16)
== END 2017-12-27 15:35 | disposition home or self-care (01) | DRG 765 ==
LOC: LDRP 11:05
PROVIDERS: ADMIT Obstetrics & Gynecology; ATTEND Obstetrics & Gynecology
PROC: 0UQ90ZZ Repair Uterus, Open Approach (ICD-10-PCS; 2017-12-25)
PROC: 0UQC0ZZ Repair Cervix, Open Approach (ICD-10-PCS; 2017-12-25)
PROC: 10D00Z1 Extraction of Products of Conception, Low, Open Approach (ICD-10-PCS; principal; 2017-12-25 12:09)
DX: O34.211 Maternal care for low transverse scar from previous cesarean delivery (principal); O99.13 Other diseases of the blood and blood-forming organs and certain disorders involving the immune mechanism complicating the puerperium; O99.62 Diseases of the digestive system complicating childbirth; K04.7 Periapical abscess without sinus; D72.829 Elevated white blood cell count, unspecified; O90.0 Disruption of cesarean delivery wound; Z3A.38 38 weeks gestation of pregnancy; Z37.0 Single live birth; Z23 Encounter for immunization
CPT/HCPCS: 36415; 85007; 85025; 85027; 86850; 86900; 86901; 90707; 90715; 94664

== ENCOUNTER 2019-09-09 09:11 | Outpatient (RCR) | payer BC, MEDICAID ==
[~2019-09-09] VITALS: Ht 165 cm; Wt 91.8 kg
[~2019-09-09 09:11] MED LIST changes: +DOCU100C37 PO; +IBUP-1780 PO; +METR-145 PO; -METR500T21 PO; +OXYC-465 PO
[2019-09-14] MEDS ORDERED: HYDR-4226 PO (09:08)
== END 2019-09-09 14:47 | disposition home or self-care (01) ==
LOC: PREOP 09:11
PROVIDERS: ATTEND Surgery
DX: Z01.818 Encounter for other preprocedural examination (principal); Z11.59 Encounter for screening for other viral diseases; L05.91 Pilonidal cyst without abscess
CPT/HCPCS: 87635

== ENCOUNTER 2020-01-15 18:13 | Emergency (ER) | payer MEDICAID ==
[~2020-01-15] VITALS: Ht 167 cm; Wt 90.0 kg
[~2020-01-15 18:13] MED LIST changes: +HYDR-4226 PO; -OXYC-465 PO; +OXYC-556 PO
[2020-01-15 18:50] VITALS: BP 138/86
--- NOTE | 2020-01-15 19:00 | ED Lower Extremity ---
General Stated Complaint: R FOOT INJ Source: patient Exam Limitations: no limitations History of Present Illness Date Seen by Provider: Jan 15, 2020 Time Seen by Provider: 18:56 Initial Comments To ER with right lateral foot swelling and bruising. She rolled her ankle earlier this morning Onset: just prior to arrival Severity: moderate Pain/Injury Location: right foot Method of Injury: fell Modifying Factors: Worse With Movement Allergies and Home Medications Allergies Coded Allergies: No Known Drug Allergies (Unverified , 09/07/19) Home Medications Hydrocodone/Acetaminophen 1 Each Tablet, 1 TAB PO Q6H Prescribed by: MICHAEL ZARAGOZA on 09/14/19 0908 Patient Home Medication List Home Medication List Reviewed: Yes Review of Systems Constitutional: see HPI EENTM: see HPI Respiratory: no symptoms reported Cardiovascular: no symptoms reported Genitourinary: no symptoms reported Musculoskeletal: see HPI Skin: no symptoms reported Past Aiurici-Rmvlsj-Hcjama Hx Patient Social History Type Used: Cigarettes 2nd Hand Smoke Exposure: Yes Recent Foreign Travel: No Contact w/Someone Who Travel: No Recent Hopitalizations: No Immunizations Up To Date PED Vaccines UTD: Yes Seasonal Allergies Seasonal Allergies: No Past Medical History Surgeries: Yes (pilondal cyst removed, CS X2) Section, Tonsillectomy Respiratory: No Currently Using CPAP: No Currently Using BIPAP: No Cardiac: No Neurological: No Reproductive Disorders: No Female Reproductive Disorders: Denies Sexually Transmitted Disease: No HIV/AIDS: No Genitourinary: No Gastrointestinal: Yes Gastroesophageal Reflux Musculoskeletal: Yes Chronic Back Pain Endocrine: No HEENT: Yes (GLASSES) Loss of Vision: Denies Hearing Impairment: Denies Cancer: No Psychosocial: No Integumentary: No Blood Disorders: No Adverse Reaction/Blood Tranf: No (N/A) Family Medical History Diabetes mellitus 19 MOTHER Immunodeficiency disorder G8 SISTER Physical Exam Vital Signs Vital Signs - First Documented 01/15/20 18:50 Temp 36.1 Pulse 90 Resp 18 B/P (MAP) 138/86 (103) Pulse Ox 98 Capillary Refill : Height, Weight, BMI Height: 5'5.00" Weight: 183lbs. 0.0oz. [id number]; 33.71 BMI Method:Stated General Appearance: WD/WN, no apparent distress HEENT: PERRL/EOMI, normal ENT inspection Respiratory: no respiratory distress, no accessory muscle use Hips: bilateral hip non-tender, bilateral hip normal inspection, bilateral hip normal range of motion Legs: bilateral leg non-tender, bilateral leg normal inspection, bilateral leg normal range of motion Knees: bilateral knee non-tender, bilateral knee normal inspection, bilateral knee normal range of motion Ankles: bilateral ankle non-tender, bilateral ankle normal inspection, bilateral ankle normal range of motion Feet: right foot ecchymosis, right foot pain, right foot soft tissue tenderness Neurologic/Psychiatric: alert, normal mood/affect, oriented x 3 Skin: normal color, warm/dry Progress/Results/Core Measures Results/Orders My Orders Orders - DYLAN BROOKS APRN Foot, Right, 3 View (01/15/20 18:55) Vital Signs/I&O 01/15/20 18:50 Temp 36.1 Pulse 90 Resp 18 B/P (MAP) 138/86 (103) Pulse Ox 98 Departure Impression Primary Impression: Sprain and strain of ankle Disposition: 01 HOME, SELF-CARE Condition: Stable Departure-Patient Inst. Decision time for Depature: 19:04 Referrals: ABBY HERNÁNDEZ MD (PCP/Family) Primary Care Physician Patient Instructions: Ankle Sprain Add. Discharge Instructions: 1. Ankle brace for the next 2 weeks. Use the crutches as needed for pain with walking. When you are able to walk without significant pain then you can stop using the crutches. Work/School Note: Work Release Form Date Seen in the Emergency Department: Jan 15, 2020 Return to Work: Jan 17, 2020 DYLAN BROOKS APRN Jan 15, 2020 19:00
--- NOTE | 2020-01-15 19:12 | Diagnostic Imaging Report ---
HISTORY: Dorsal foot pain and swelling after injury. TECHNIQUE: 3 views of the right foot. COMPARISON: None. FINDINGS: No acute fracture or dislocation is seen in the right foot. Alignment appears normal. Joint spaces are preserved. IMPRESSION: No acute osseous abnormality is seen in the right foot. Dictated by: Dictated on workstation # [id number]
[2020-01-15] MEDS ORDERED: RX-HYDROCODONE/APAP 5/325 MG #4 TAB PK PO PRN (19:15)
== END 2020-01-15 19:34 | disposition home or self-care (01) ==
LOC: EDUNIT# 18:13 → ER 18:14
DX: S93.491A Sprain of other ligament of right ankle, initial encounter (principal); G89.29 Other chronic pain; M54.9 Dorsalgia, unspecified; Z77.22 Contact with and (suspected) exposure to environmental tobacco smoke (acute) (chronic); Z83.3 Family history of diabetes mellitus; Z79.891 Long term (current) use of opiate analgesic; Z20.828 Contact with and (suspected) exposure to other viral communicable diseases; X50.1XXA Overexertion from prolonged static or awkward postures, initial encounter
CPT/HCPCS: 73630

== ENCOUNTER 2020-10-02 05:33 | Outpatient (CLI) | payer MEDICAID ==
[~2020-10-02] VITALS: Ht 167.7 cm; Wt 98.6 kg
== END 2020-10-02 10:31 | disposition home or self-care (01) ==
LOC: PREOP 05:33
PROVIDERS: ATTEND Obstetrics & Gynecology
DX: Z01.818 Encounter for other preprocedural examination (principal)

== ENCOUNTER 2020-10-09 10:01 | Inpatient (IN) | payer MEDICAID ==
[2020-10-09] VITALS (12 sets, daily range): BP systolic 109–133; BP diastolic 58–89
[2020-10-09] MEDS ORDERED: ceFAZolin INJECTION 2,000 MG in WATER (STERILE) FOR INJECTION 10 ML IV ONE (10:15)
[2020-10-09] MEDS ORDERED: metroNIDAZOLE 500MG/100ML IVPB 100 ML IV ONE ×2 (10:15→10:30)
[2020-10-09] MEDS ORDERED: ceFAZolin 2 GM IV Premixed 50 ML IV ONE ×2 (10:15→10:30)
[2020-10-09] MEDS ORDERED: METOCLOPRAMIDE INJ 10 MG/2 ML (REGLAN) IV ONE (10:30)
[2020-10-09] MEDS ORDERED: FAMOTIDINE 20MG/2ML IV (PEPCID) IV ONE (10:30)
[2020-10-09] MEDS ORDERED: CITRIC ACID/SOB CIT (BICITRA) 30 ML UDC PO ONE (10:30)
[2020-10-09] MEDS: LACTATED RINGERS 1,000 ML IV PRN ×3 (10:41→12:28)
[2020-10-09 10:54] LABS: BASOPHILS % (AUTO) 0 % (0-10); EOSINOPHILS # (AUTO) 0.1 10^3/uL (0.0-0.3); EOSINOPHILS % (AUTO) 1 % (0-10); HEMATOCRIT 40 % (35-52); HEMOGLOBIN 13.5 g/dL (11.5-16.0); LYMPHOCYTES # (AUTO) 2.7 10^3/uL (1.0-4.0); LYMPHOCYTES % (AUTO) 19 % (12-44); MEAN CORPUSCULAR HEMOGLOBIN 29 pg (25-34); MEAN CORPUSCULAR HGB CONC 34 g/dL (32-36); MEAN CORPUSCULAR VOLUME 86 fL (80-99); MEAN PLATELET VOLUME 12.3 fL (9.0-12.2); MONOCYTES % (AUTO) 7 % (0-12); NEUTROPHILS # (AUTO) 10.1 10^3/uL (1.8-7.8); NEUTROPHILS % (AUTO) 72 % (42-75); PLATELET COUNT 349 10^3/uL (130-400); WHITE BLOOD COUNT 14.1 10^3/uL (4.3-11.0)
[2020-10-09 11:09] LABS: EOSINOPHILS % (MANUAL) 3 %; LYMPHOCYTES % (MANUAL) 24 %; MONOCYTES % (MANUAL) 3 %; NEUTROPHILS % (MANUAL) 70 %; RBC MORPH NORMAL
[2020-10-09] MEDS ORDERED: fentaNYL INJ 100 MCG/2 ML AMP ONE (11:46)
[2020-10-09] MEDS ORDERED: OXYTOCIN PRE-MIX DRIP 1,000 ML IV ONE (11:46)
[2020-10-09] MEDS ORDERED: ONDANSETRON 4 MG/2 ML (SDV) Z0FRAN ONE ×2 (11:46→12:33)
[2020-10-09] MEDS ORDERED: BUPIVACAINE 0.5% 30 ML (SENSORCAINE) VIAL ONE (12:44)
[2020-10-09] MEDS ORDERED: ONDANSETRON 4 MG/2 ML (SDV) Z0FRAN IVP PRN (12:45)
[2020-10-09] MEDS ORDERED: D5 LR IV SOLUTION 1,000 ML IV SCH (12:45)
[2020-10-09] MEDS ORDERED: TETANUS,DIPTH,PERTUSS P/F (BOOSTRIX) 0.5 ML VIAL IM ONE (12:45)
[2020-10-09] MEDS ORDERED: fentaNYL INJ 100 MCG/2 ML AMP IVP PRN (12:45)
[2020-10-09] MEDS ORDERED: MEASLES,MUMPS,RUBELLA 1 EA INJ SC ONE (12:45)
[2020-10-09 12:49] LABS: BILIRUBIN,URINE NEGATIVE (NEGATIVE); CLARITY,URINE CLEAR; COLOR,URINE YELLOW; GLUCOSE, URINE (UA) NEGATIVE (NEGATIVE); KETONES,URINE NEGATIVE (NEGATIVE); LEUKOCYTE ESTERASE ,URINE NEGATIVE (NEGATIVE); NITRITE,URINE NEGATIVE (NEGATIVE); PROTEIN,URINE NEGATIVE (NEGATIVE)
[2020-10-09] MEDS ORDERED: KETOROLAC 30 MG/ML VIAL ONE (12:52)
[2020-10-09] MEDS: KETOROLAC 30 MG/ML VIAL IVP SCH ×2 (12:53→17:45)
[2020-10-09 12:57] LABS: BACTERIA,URINE TRACE /HPF; RBC,URINE RARE /HPF; WBC,URINE RARE /HPF
[2020-10-09] MEDS: OXYTOCIN PRE-MIX DRIP 500 ML IV SCH ×2 (13:20→17:45)
--- NOTE | 2020-10-09 15:41 | OPERATIVE REPORT ---
DATE OF SERVICE: 10/09/2020 PREOPERATIVE DIAGNOSES: A 38-week with gestational diabetes and previous C-sections x2. POSTOPERATIVE DIAGNOSES: A 38-week with gestational diabetes and previous C-sections x2. OPERATIVE PROCEDURE: Repeat low transverse delivery of viable male infant with Apgars of 9 and 9 at 1 and 5 minutes respectively, weight of 7 pounds, time of 12:37 and a cord blood pH of 7.30. OPERATIVE DESCRIPTION: With the patient in supine position under satisfactory spinal analgesia, she was repositioned supine and then prepped and draped in the usual fashion for abdominal surgery. Pérez catheter was placed in the urinary bladder. A repeat Pfannenstiel incision was made through the skin with scalpel at the patient's previous Pfannenstiel incisional scar. The abdomen was entered in the usual manner. Bladder retractor was placed in position. A clean scalpel was used to make a 4 cm hysterotomy incision transversely across the lower uterine segment that was extended by blunt dissection as well. Clear fluid was released on amniotomy. Perry forceps were applied to facilitate delivery of a vigorous viable male . Infant had Apgars and stats as noted above. The was bulb suctioned on delivery of the head and again on completion of delivery. A single nuchal cord was easily released. The umbilical cord was doubly clamped and cut and the passed to the pediatric nurse in attendance for delivery. Cord bloods were obtained. The placenta delivered spontaneously Dahl. It was normal with a 3-vessel cord. The uterus was exteriorized, anterior wiped clean with a wet laparotomy sponge. Uterine incision was then closed with a running locked suture of 2-0 Vicryl. Hemostasis was complete. The uterus was returned to abdominal cavity. All blood clot and debris removed from the abdominal cavity. Sponge and needle counts were correct, hemostasis assured. The anterior parietal peritoneum was closed with running suture of 2-0 Vicryl. Rectus muscles were closed with that suture as well. The rectus fascia was closed with 2-0 Vicryl, subcutaneous tissue was closed with 2-0 Vicryl and the skin was stapled. Sponge and needle counts were correct on completion of the procedure. Blood loss was around 350 mL. The patient was transferred to the recovery room in a stable condition. The had been taken stable to the full term nursery under the care of the pediatric nurse. Job ID: [id number] DocumentID: [id number] Dictated Date: 10/09/2020 12:54:57 Animal Stunner Date: 10/09/2020 15:40:52 Dictated By: MATTHEW JAY MD
[2020-10-09] MEDS: oxyCODONE/APAP 10/325MG (PERCOCET 10) TABLET PO PRN ×2 (16:21→20:57)
[2020-10-09] MEDS: DOCUSATE SODIUM 100 MG (COLACE) CAP PO SCH (20:55)
[2020-10-09] MEDS ORDERED: DOCUSATE SODIUM 100 MG (COLACE) CAP PO SCH (21:00)
[2020-10-10] VITALS: BP 134/65
[2020-10-10] MEDS: KETOROLAC 30 MG/ML VIAL IVP SCH ×2 (00:13→06:05)
[2020-10-10 04:00] VITALS: BP 107/50
--- NOTE | 2020-10-10 07:29 | Progress Note ---
Standard Progress Note Progress Notes/Assess & Plan Date Seen by a Provider: Oct 10, 2020 Time Seen by a Provider: 07:28 Progress/Assessment & Plan This patient is without complaint. She is ambulating, voiding, tolerating oral intake well has good pain control. Patient denies chest pain, denies shortness of breath, denies nausea or vomiting, and denies headache. Vital Signs Date Time Temp Pulse Resp B/P (MAP) Pulse Ox O2 Delivery O2 Flow Rate FiO2 10/10/20 04:00 36.0 59 16 107/50 (69) 98 Room Air 10/10/20 00:00 36.4 71 16 134/65 (88) 98 Room Air 10/09/20 21:00 96 Room Air 10/09/20 20:00 36.3 70 18 132/72 (92) 98 Room Air 10/09/20 16:16 36.6 78 18 128/75 (92) 98 Room Air 10/09/20 13:49 35.8 60 16 116/68 (84) 99 Room Air 10/09/20 13:49 35.8 16 116/68 (84) 99 Room Air 10/09/20 13:49 Room Air 10/09/20 13:32 36.2 16 118/60 (79) 99 Room Air 10/09/20 13:32 Room Air 10/09/20 13:16 35.7 16 109/65 (80) 98 Room Air 10/09/20 13:16 Room Air 10/09/20 13:01 36.3 16 122/58 (79) 96 Room Air 10/09/20 13:01 Room Air 10/09/20 12:09 100 18 133/85 (101) Room Air 10/09/20 12:00 80 18 130/76 (94) Room Air 10/09/20 11:40 78 18 131/80 (97) Room Air 10/09/20 11:25 72 18 127/78 (94) Room Air 10/09/20 11:10 81 18 126/75 (92) Room Air 10/09/20 10:21 36.1 104 18 98 Room Air I & O 10/10/20 07:00 Intake Total 6350 ml Output Total 1400 ml Balance 4950 ml Vital signs are stable. Patient is afebrile. Fundus is firm below the umbilicus and nontender. The surgical incision is clean dry and intact. Extremities show no clubbing or cyanosis. There is no Homans' sign. Assessment and plan Postoperative day #1 status post repeat delivery doing well. Plan is for routine convalescent care MATTHEW JAY MD Oct 10, 2020 07:29
[2020-10-10] MEDS ORDERED: IBUP-1780 PO (07:30)
[2020-10-10] MEDS ORDERED: OXYC1TAB12 PO (07:30)
[2020-10-10] MEDS ORDERED: DCS100C PO (07:31)
--- NOTE | 2020-10-10 07:31 | Discharge Inst-Surgical ---
Discharge Inst-Surgical Depart Medication/Instructions New, Converted or Re-Newed RX: RX on Chart Consults/Follow Up Patient Instructions: As directed Orders & Referrals Follow Up Appt: RTC 1 week for incision check. Call to make follow up appt. for patient in 4 weeks. Wound Care: Remove eugenie, apply benzoin and steri strips. Activity Per routine post instructions. Please call in RX to patient pharmacy. Diet as tolerated Patient may shower or tub bathe as desired. Continue home meds Activity Activity as Tolerated: No Diet Discharge Diet: No Restrictions MATTHEW JAY MD Oct 10, 2020 07:31
[2020-10-10 08:39] VITALS: BP 128/68
[2020-10-10] MEDS: oxyCODONE/APAP 10/325MG (PERCOCET 10) TABLET PO PRN ×3 (08:41→23:05)
[2020-10-10] MEDS: DOCUSATE SODIUM 100 MG (COLACE) CAP PO SCH ×2 (08:41→19:39)
--- NOTE | 2020-10-10 09:32 | Anesthesia-Regional Post-Op ---
Regional Patient Condition Mental Status: Alert, Oriented x3 Circulation: Same as Pre-Op Headache: Absent Sensation: Full Recovery Motor Block: Absent Post Op Complications Complications None Follow Up Care/Instructions Patient Instructions None needed. Anesthesia/Patient Condition Patient is doing well, no complaints, stable vital signs, no apparent adverse anesthesia problems. No complications reported per nursing. SEBASTIÁN MOSQUEDA CRNA Oct 10, 2020 09:32
[2020-10-10 14:25] VITALS: BP 116/68
[2020-10-10] MEDS: IBUPROFEN 800 MG (MOTRIN) TAB PO SCH ×2 (14:26→20:33)
[2020-10-10 19:41] VITALS: BP 128/66
[2020-10-10] MEDS: D5 LR IV SOLUTION 1,000 ML IV SCH ×3 (20:52→20:54)
[2020-10-10 23:04] VITALS: BP 123/57
[2020-10-11] MEDS: DOCUSATE SODIUM 100 MG (COLACE) CAP PO SCH (07:28)
[2020-10-11] MEDS: IBUPROFEN 800 MG (MOTRIN) TAB PO SCH (07:29)
[2020-10-11 07:30] VITALS: BP 122/66
[2020-10-11] MEDS: oxyCODONE/APAP 10/325MG (PERCOCET 10) TABLET PO PRN (12:08)
--- NOTE | 2020-10-11 12:45 | Progress Note ---
Standard Progress Note Progress Notes/Assess & Plan Date Seen by a Provider: Oct 11, 2020 Time Seen by a Provider: 12:44 Progress/Assessment & Plan This patient is without complaint. She is ambulating, voiding, tolerating oral intake well has good pain control. Patient denies chest pain, denies shortness of breath, denies nausea or vomiting, and denies headache. Vital Signs Date Time Temp Pulse Resp B/P (MAP) Pulse Ox O2 Delivery O2 Flow Rate FiO2 10/10/20 04:00 36.0 59 16 107/50 (69) 98 Room Air 10/10/20 00:00 36.4 71 16 134/65 (88) 98 Room Air 10/09/20 21:00 96 Room Air 10/09/20 20:00 36.3 70 18 132/72 (92) 98 Room Air 10/09/20 16:16 36.6 78 18 128/75 (92) 98 Room Air 10/09/20 13:49 35.8 60 16 116/68 (84) 99 Room Air 10/09/20 13:49 35.8 16 116/68 (84) 99 Room Air 10/09/20 13:49 Room Air 10/09/20 13:32 36.2 16 118/60 (79) 99 Room Air 10/09/20 13:32 Room Air 10/09/20 13:16 35.7 16 109/65 (80) 98 Room Air 10/09/20 13:16 Room Air 10/09/20 13:01 36.3 16 122/58 (79) 96 Room Air 10/09/20 13:01 Room Air 10/09/20 12:09 100 18 133/85 (101) Room Air 10/09/20 12:00 80 18 130/76 (94) Room Air 10/09/20 11:40 78 18 131/80 (97) Room Air 10/09/20 11:25 72 18 127/78 (94) Room Air 10/09/20 11:10 81 18 126/75 (92) Room Air 10/09/20 10:21 36.1 104 18 98 Room Air I & O 10/10/20 07:00 Intake Total 6350 ml Output Total 1400 ml Balance 4950 ml Vital signs are stable. Patient is afebrile. Fundus is firm below the umbilicus and nontender. The surgical incision is clean dry and intact. Extremities show no clubbing or cyanosis. There is no Homans' sign. Assessment and plan Postoperative day #1 status post repeat delivery doing well. Plan is for routine convalescent care October 11, 2020 This patient is without complaint. She is ambulating, voiding, tolerating oral intake well and has good pain control. Patient is requesting discharge home. Vital Signs Date Time Temp Pulse Resp B/P (MAP) Pulse Ox O2 Delivery O2 Flow Rate FiO2 10/11/20 07:30 36.1 80 18 122/66 (84) Room Air 10/10/20 23:04 36.1 81 18 123/57 (79) 97 Room Air 10/10/20 19:41 36.3 92 18 128/66 (86) 98 Room Air 10/10/20 19:35 Room Air 10/10/20 14:25 36.1 82 18 116/68 (84) 97 Room Air Vital signs are stable. Patient is afebrile. The abdomen is benign. The surgical incision is clean dry intact. Fundus is firm below the umbilicus nontender. Extremities show no clubbing or cyanosis. There is no Homans' sign. Assessment and plan Postoperative day #2 status post repeat delivery at 38 weeks gestation. Patient is doing well will be discharged home with follow-up in clinic Final Diagnosis 38-week repeat delivery MATTHEW JAY MD Oct 11, 2020 12:45
== END 2020-10-11 13:10 | disposition home or self-care (01) | DRG 788 ==
LOC: LDRP 10:01
PROVIDERS: ADMIT Obstetrics & Gynecology; ATTEND Obstetrics & Gynecology
PROC: 10D00Z1 Extraction of Products of Conception, Low, Open Approach (ICD-10-PCS; principal; 2020-10-09 12:11)
DX: O34.211 Maternal care for low transverse scar from previous cesarean delivery (principal); Z3A.38 38 weeks gestation of pregnancy; Z37.0 Single live birth; O24.429 Gestational diabetes mellitus in childbirth, unspecified control
CPT/HCPCS: 36415; 81000; 85007; 85027; 86850; 86900; 86901; 90715

== ENCOUNTER 2020-10-30 13:33 | Day surgery (SDC) | payer MEDICAID ==
[~2020-10-30] VITALS: Ht 165 cm; Wt 90.9 kg
[~2020-10-30 13:33] MED LIST changes: +DCS100C PO; +OXYC1TAB12 PO
[2020-10-30] MEDS ORDERED: KETOROLAC 30 MG/ML VIAL IVP ONE (14:30)
[2020-10-30] MEDS ORDERED: PANTOPRAZOLE 40 MG (PROTONIX) VIAL IV ONE (14:30)
[2020-10-30] MEDS ORDERED: NS IV 1000 ML 1,000 ML IV SCH (14:30)
[2020-10-30 14:32] LABS: BASOPHILS # (AUTO) 0.1 10^3/uL (0.0-0.1); BASOPHILS % (AUTO) 1 % (0-10); EOSINOPHILS # (AUTO) 0.2 10^3/uL (0.0-0.3); EOSINOPHILS % (AUTO) 2 % (0-10); HEMATOCRIT 44 % (35-52); HEMOGLOBIN 14.3 g/dL (11.5-16.0); LYMPHOCYTES # (AUTO) 1.8 10^3/uL (1.0-4.0); LYMPHOCYTES % (AUTO) 18 % (12-44); MEAN CORPUSCULAR HEMOGLOBIN 29 pg (25-34); MEAN CORPUSCULAR HGB CONC 32 g/dL (32-36); MEAN CORPUSCULAR VOLUME 90 fL (80-99); MEAN PLATELET VOLUME 11.7 fL (9.0-12.2); MONOCYTES # (AUTO) 0.6 10^3/uL (0.0-1.0); MONOCYTES % (AUTO) 6 % (0-12); NEUTROPHILS # (AUTO) 7.2 10^3/uL (1.8-7.8); NEUTROPHILS % (AUTO) 72 % (42-75); PLATELET COUNT 370 10^3/uL (130-400); WHITE BLOOD COUNT 9.9 10^3/uL (4.3-11.0)
--- NOTE | 2020-10-30 14:33 | ED Abdominal Pain ---
General Chief Complaint: Abdominal/GI Problems Stated Complaint: RLQ PAIN Nursing Triage Note: AMB TO ROOM C/O R UPPER ABD PAIN WITH RADIATION TO BACK HAD BABY 3 WEEKS AGO BY C SECTION. Source of Information: Patient Exam Limitations: No Limitations History of Present Illness Date Seen by Provider: Oct 30, 2020 Time Seen by Provider: 14:11 Initial Comments Yesterday afternoon patient started having some nausea vomiting and epigastric pain just off center radiating straight through to her back. She does not drink alcohol have hydroglycerides, pancreatitis, or diabetes. She is 3 weeks post C- section delivery. Gallbladder is intact. Pain started about 3:00 in the afternoon. No fevers, chills diarrhea or constipation. She did she did try some Tylenol followed by Motrin followed by Gas-X and antacids and none of these helped her symptoms. Last oral Allergies and Home Medications Allergies Coded Allergies: No Known Drug Allergies (Unverified , 09/07/19) Home Medications Docusate Sodium 100 Mg Capsule, 100 MG PO BID Prescribed by: MATTHEW MARTIN on 10/10/20 07 Ibuprofen 800 Mg Tablet, 800 MG PO Q6H Prescribed by: MATTHEW MARTIN on 10/10/20 07 Oxycodone HCl/Acetaminophen 1 Each Tablet, 1 TAB PO Q4HR PRN for Pain Prescribed by: MATTHEW MARTIN on 10/10/20729 Patient Home Medication List Home Medication List Reviewed: Yes Review of Systems Review of Systems Constitutional: No chills, No fever, No malaise EENTM: No Blurred Vision, No Double Vision Respiratory: Denies Cough, Denies Shortness of Air Cardiovascular: Denies Chest Pain, Denies Lightheadedness Gastrointestinal: Denies Constipated, Denies Diarrhea; Nausea; Denies Vomiting Genitourinary: Denies Burning, Denies Discharge Musculoskeletal: No back pain, No joint pain All Other Systems Reviewed Negative Unless Noted: Yes Past Cslzzms-Tzkvfz-Ckbxzx Hx Patient Social History Tobacco Use?: Yes Smoking Status: Current Someday Smoker Substance use?: No Pt feels they are or have been: No Immunizations Up To Date PED Vaccines UTD: Yes Influenza Vaccine Up-to-Date: No; Not Current First/Initial COVID19 Vaccinat: NO Seasonal Allergies Seasonal Allergies: Yes Past Medical History Surgery/Hospitalization HX: C SECTION Surgeries: Yes (pilondal cyst removed x2, CS X2) Section, Tonsillectomy Respiratory: No Currently Using CPAP: No Currently Using BIPAP: No Cardiac: No Neurological: No Reproductive Disorders: No Female Reproductive Disorders: Denies Sexually Transmitted Disease: No HIV/AIDS: No Genitourinary: No Gastrointestinal: Yes Gastroesophageal Reflux Musculoskeletal: Yes Chronic Back Pain Endocrine: No (borderline GDM) HEENT: Yes (GLASSES) Loss of Vision: Denies Hearing Impairment: Denies Cancer: No Psychosocial: No Integumentary: No Blood Disorders: No Adverse Reaction/Blood Tranf: No (N/A) Family Medical History Diabetes mellitus 19 MOTHER Immunodeficiency disorder G8 SISTER Physical Exam Vital Signs Vital Signs - First Documented 10/30/20 13:53 Temp 36.7 Pulse 65 Resp 18 B/P (MAP) 135/77 (96) Pulse Ox 98 Capillary Refill : Less Than 3 Seconds Height/Weight/BMI Height: 5'5.00" Weight: 183lbs. 0.0oz. 83.419317kq; 33.00 BMI Method:Stated General Appearance: WD/WN, mild distress HEENT: PERRL/EOMI, pharynx normal Neck: full range of motion, normal inspection Respiratory: lungs clear, normal breath sounds, no respiratory distress, no accessory muscle use Cardiovascular: normal peripheral pulses, regular rate, rhythm Gastrointestinal: soft, no organomegaly, tenderness (Epigastric with negative for Olsen sign, McBurney's point rebound tenderness, Rovsing sign, psoas sign, mesenteric signs) Extremities: normal range of motion, normal capillary refill Neurologic/Psychiatric: alert, normal mood/affect, oriented x 3 Progress/Results/Core Measures Results/Orders Lab Results Laboratory Tests Test 10/30/20 14:20 10/30/20 14:30 Range/Units White Blood Count 9.9 4.3-11.0 10^3/uL Red Blood Count 4.95 3.80-5.11 10^6/uL Hemoglobin 14.3 11.5-16.0 g/dL Hematocrit 44 35-52 % Mean Corpuscular Volume 90 80-99 fL Mean Corpuscular Hemoglobin 29 25-34 pg Mean Corpuscular Hemoglobin Concent 32 32-36 g/dL Red Cell Distribution Width 13.0 10.0-14.5 % Platelet Count 370 130-400 10^3/uL Mean Platelet Volume 11.7 9.0-12.2 fL Immature Granulocyte % (Auto) 1 % Neutrophils (%) (Auto) 72 42-75 % Lymphocytes (%) (Auto) 18 12-44 % Monocytes (%) (Auto) 6 0-12 % Eosinophils (%) (Auto) 2 0-10 % Basophils (%) (Auto) 1 0-10 % Neutrophils # (Auto) 7.2 1.8-7.8 10^3/uL Lymphocytes # (Auto) 1.8 1.0-4.0 10^3/uL Monocytes # (Auto) 0.6 0.0-1.0 10^3/uL Eosinophils # (Auto) 0.2 0.0-0.3 10^3/uL Basophils # (Auto) 0.1 0.0-0.1 10^3/uL Immature Granulocyte # (Auto) 0.1 0.0-0.1 10^3/uL Sodium Level 143 135-145 MMOL/L Potassium Level 4.0 3.6-5.0 MMOL/L Chloride Level 107 98-107 MMOL/L Carbon Dioxide Level 22 21-32 MMOL/L Anion Gap 14 5-14 MMOL/L Blood Urea Nitrogen 7 7-18 MG/DL Creatinine 0.73 0.60-1.30 MG/DL Estimat Glomerular Filtration Rate > 60 BUN/Creatinine Ratio 10 Glucose Level 107 H 70-105 MG/DL Calcium Level 9.2 8.5-10.1 MG/DL Corrected Calcium 9.1 8.5-10.1 MG/DL Total Bilirubin 2.0 H 0.1-1.0 MG/DL Aspartate Amino Transf (AST/SGOT) 351 H 5-34 U/L Alanine Aminotransferase (ALT/SGPT) 526 H 0-55 U/L Alkaline Phosphatase 331 H 40-136 U/L C-Reactive Protein High Sensitivity 0.85 H 0.00-0.50 MG/DL Total Protein 7.0 6.4-8.2 GM/DL Albumin 4.1 3.2-4.5 GM/DL Lipase 20 8-78 U/L Urine Color YELLOW Urine Clarity CLEAR Urine pH 8.0 5-9 Urine Specific [place] 1.020 1.016-1.022 Urine Protein NEGATIVE NEGATIVE Urine Glucose (UA) NEGATIVE NEGATIVE Urine Ketones NEGATIVE NEGATIVE Urine Nitrite NEGATIVE NEGATIVE Urine Bilirubin 1+ H NEGATIVE Urine Urobilinogen 1.0 < = 1.0 MG/DL Urine Leukocyte Esterase NEGATIVE NEGATIVE Urine RBC (Auto) NEGATIVE NEGATIVE Urine RBC NONE /HPF Urine WBC 0-2 /HPF Urine Squamous Epithelial Cells 2-5 /HPF Urine Crystals NONE /LPF Urine Bacteria NEGATIVE /HPF Urine Casts NONE /LPF Urine Mucus NEGATIVE /LPF Urine Culture Indicated NO My Orders Orders - LUIS CARLOS HERRERA Cbc With Automated Diff (10/30/20 14:22) Comprehensive Metabolic Panel (10/30/20 14:22) Lipase (10/30/20 14:22) Hs C Reactive Protein (10/30/20 14:22) Ketorolac Injection (Toradol Injection) (10/30/20 14:30) Ed Iv/Invasive Line Start (10/30/20 14:23) Ns Iv 1000 Ml (Sodium Chloride 0.9%) (10/30/20 14:30) Pantoprazole Injection (Protonix Injecti (10/30/20 14:30) Us Gallbladder [id number] (10/30/20 15:35) Ed Iv/Invasive Line Start (10/30/20 15:35) Medications Given in ED Current Medications Medications Dose Ordered Sig/[place] Route Start Time Stop Time Status Last Admin Dose Admin Ketorolac Tromethamine 30 mg ONCE ONCE IVP 10/30/20 14:30 10/30/20 14:31 DC 10/30/20 14:47 30 MG Pantoprazole 40 mg ONCE ONCE IV 10/30/20 14:30 10/30/20 14:31 DC 10/30/20 14:45 40 MG Vital Signs/I&O 10/30/20 13:53 Temp 36.7 Pulse 65 Resp 18 B/P (MAP) 135/77 (96) Pulse Ox 98 Blood Pressure Mean: 96 Diagnostic Imaging Diagonstic Imaging: Ultrasound Plain Films/CT/US/NM/MRI: abdomen Comments [facility], [place] NAME: GI[facility]ATTIE R [facility] REC#: [id number] PT STATUS: REG ER : 1990 PHYSICIAN: LUIS CARLOS HERRERA MD ADMIT DATE: 10/30/20/ER Signed Date of Exam:10/30/20 US GALLBLADDER [id number] PROCEDURE: US Gallbladder. TECHNIQUE: Multiple real-time grayscale images were obtained over the right upper quadrant in various projections. INDICATION: Nausea and vomiting with right upper quadrant pain. FINDINGS: Liver parenchyma appears normal. Liver is not enlarged measuring 13 cm. The intrahepatic radicles are not dilated. Common bile duct is 4 mm. There are several small mobile gallstones. The gallbladder wall is diffusely thickened measuring 4 mm. No pericholecystic fluid is seen. Gallbladder is moderately distended. The aorta, vena cava, and portal vein appear normal with Doppler sampling. Right kidney is normal measuring 12 x 3.5 x 5.5 cm. No ascites. Negative Olsen's sign. IMPRESSION: 1. Cholelithiasis with gallbladder mildly distended and diffuse thickening of the gallbladder wall without evidence of pericholecystic fluid or bile duct dilatation. Dictated by: Dictated on workstation # [id number] Dict: 10/30/20 1632 Trans: 10/30/20 1646 [id number] Interpreted by: MICHAEL GARCIA MD Electronically signed by: MICHAEL GARCIA MD 10/30/20 1646 Reviewed: Reviewed by Me Departure Communication (Admissions) Time/Spoke to Admitting Phy: 17:10 Discussed the case with Dr. Kitchen, general surgery and he agrees to observe the patient and add her onto his schedule to follow-up tomorrow for cholecystectomy. Impression Primary Impression: Cholelithiasis and acute cholecystitis without obstruction Disposition: ADMITTED INPATIENT Condition: Stable Admissions Decision to Admit Reason: Admit from ER (General) Decision to Admit/Date: Oct 30, 2020 Time/Decision to Admit Time: 17:00 Departure-Patient Inst. Referrals: ABBY HERNÁNDEZ MD (PCP/Family) Primary Care Physician LUIS CARLOS HERRERA Oct 30, 2020 14:33
[2020-10-30 14:35] LABS: ALBUMIN 4.1 GM/DL (3.2-4.5); CHLORIDE 107 MMOL/L (98-107); SODIUM 143 MMOL/L (135-145)
[2020-10-30 14:36] LABS: CALCIUM 9.2 MG/DL (8.5-10.1)
[2020-10-30 14:37] LABS: GLUCOSE 107 MG/DL (70-105)
[2020-10-30 14:38] LABS: CARBON DIOXIDE 22 MMOL/L (21-32)
[2020-10-30 14:41] LABS: ALKALINE PHOSPHATASE 331 U/L (40-136); CREATININE SERUM 0.73 MG/DL (0.60-1.30); GFR ESTIMATED > 60
[2020-10-30 14:42] LABS: BUN/CREATININE RATIO 10
[2020-10-30 14:44] LABS: ALANINE AMINOTRANSFERASE 526 U/L (0-55); LIPASE 20 U/L (8-78)
[2020-10-30 14:44] LABS: BILIRUBIN,URINE 1+ (NEGATIVE); CLARITY,URINE CLEAR; COLOR,URINE YELLOW; GLUCOSE, URINE (UA) NEGATIVE (NEGATIVE); KETONES,URINE NEGATIVE (NEGATIVE); LEUKOCYTE ESTERASE ,URINE NEGATIVE (NEGATIVE); NITRITE,URINE NEGATIVE (NEGATIVE); PROTEIN,URINE NEGATIVE (NEGATIVE)
[2020-10-30 15:11] LABS: BACTERIA,URINE NEGATIVE /HPF; WBC,URINE 0-2 /HPF
--- NOTE | 2020-10-30 16:36 | Diagnostic Imaging Report ---
PROCEDURE: US Gallbladder. TECHNIQUE: Multiple real-time grayscale images were obtained over the right upper quadrant in various projections. INDICATION: Nausea and vomiting with right upper quadrant pain. FINDINGS: Liver parenchyma appears normal. Liver is not enlarged measuring 13 cm. The intrahepatic radicles are not dilated. Common bile duct is 4 mm. There are several small mobile gallstones. The gallbladder wall is diffusely thickened measuring 4 mm. No pericholecystic fluid is seen. Gallbladder is moderately distended. The aorta, vena cava, and portal vein appear normal with Doppler sampling. Right kidney is normal measuring 12 x 3.5 x 5.5 cm. No ascites. Negative Olsen's sign. IMPRESSION: 1. Cholelithiasis with gallbladder mildly distended and diffuse thickening of the gallbladder wall without evidence of pericholecystic fluid or bile duct dilatation. Dictated by: Dictated on workstation # [id number]
[2020-10-30] MEDS ORDERED: cefTRIAXone 1,000 MG in WATER (STERILE) FOR INJECTION 10 ML IV ONE (17:30)
[2020-10-30 20:00] VITALS: BP 120/71
[2020-10-30] MEDS ORDERED: CATHETER FLUSH 10 ML SYR IV PRN (20:30)
[2020-10-30] MEDS ORDERED: PROMETHAZINE INJ 25 MG/ML (PHENERGAN) AMP IV PRN (20:30)
[2020-10-30] MEDS ORDERED: ONDANSETRON 4 MG/2 ML (SDV) Z0FRAN IV PRN (20:30)
[2020-10-30] MEDS ORDERED: morphine INJ 4 MG/ML 1 ML (VIAL/SYRINGE) IV PRN (20:30)
[2020-10-30] MEDS ORDERED: fentaNYL INJ 100 MCG/2 ML AMP IV PRN (20:30)
[2020-10-30] MEDS: LACTATED RINGERS 1,000 ML IV SCH (21:21)
[2020-10-30] MEDS ORDERED: ACETAMINOPHEN 325 MG TABLET PO ONE (22:00)
[2020-10-31] VITALS (11 sets, daily range): BP systolic 109–142; BP diastolic 59–95
[2020-10-31] MEDS: LACTATED RINGERS 1,000 ML IV SCH ×4 (04:00→14:50)
[2020-10-31 06:26] LABS: BASOPHILS # (AUTO) 0.1 10^3/uL (0.0-0.1); BASOPHILS % (AUTO) 1 % (0-10); EOSINOPHILS # (AUTO) 0.4 10^3/uL (0.0-0.3); EOSINOPHILS % (AUTO) 4 % (0-10); HEMATOCRIT 38 % (35-52); HEMOGLOBIN 12.5 g/dL (11.5-16.0); LYMPHOCYTES # (AUTO) 2.7 10^3/uL (1.0-4.0); LYMPHOCYTES % (AUTO) 29 % (12-44); MEAN CORPUSCULAR HEMOGLOBIN 29 pg (25-34); MEAN CORPUSCULAR HGB CONC 33 g/dL (32-36); MEAN CORPUSCULAR VOLUME 89 fL (80-99); MEAN PLATELET VOLUME 11.6 fL (9.0-12.2); MONOCYTES # (AUTO) 0.7 10^3/uL (0.0-1.0); MONOCYTES % (AUTO) 7 % (0-12); NEUTROPHILS # (AUTO) 5.4 10^3/uL (1.8-7.8); NEUTROPHILS % (AUTO) 59 % (42-75); PLATELET COUNT 326 10^3/uL (130-400); WHITE BLOOD COUNT 9.1 10^3/uL (4.3-11.0)
[2020-10-31 06:35] LABS: CHLORIDE 110 MMOL/L (98-107); POTASSIUM 3.7 MMOL/L (3.6-5.0); SODIUM 142 MMOL/L (135-145)
[2020-10-31 06:36] LABS: CALCIUM 8.2 MG/DL (8.5-10.1); GLUCOSE 95 MG/DL (70-105)
[2020-10-31 06:38] LABS: CARBON DIOXIDE 22 MMOL/L (21-32)
[2020-10-31 06:40] LABS: CREATININE SERUM 0.69 MG/DL (0.60-1.30); GFR ESTIMATED > 60
[2020-10-31 06:41] LABS: BUN/CREATININE RATIO 9
[2020-10-31] MEDS ORDERED: DOCU-26 PO (08:31)
[2020-10-31] MEDS ORDERED: OXYC-556 PO (08:31)
[2020-10-31] MEDS ORDERED: IBUP-1780 PO (08:31)
[2020-10-31] MEDS ORDERED: cefTRIAXone 1,000 MG/SWFI 10 ML IV PUSH IV SCH ×2 (09:00)
[2020-10-31] MEDS ORDERED: PANTOPRAZOLE 40 MG (PROTONIX) VIAL IV SCH (09:00)
--- NOTE | 2020-10-31 09:16 | History & Physical-Surgical ---
History of Present Illness History of Present Illness Reason for visit/HPI CC: epigastric abd pain 30 year old female with c section about 3 weeks ago. Presented to ed yesterday for epigastric abdominal pain, nausea and vomiting. Started yesterday around 3 pm. Patient pain sharp. No radiation. Not had pain like this before. Pain medi cation makes better. Not sure if anything makes worse. Had u/s that showed cholelithisiasis and distended, thickened gallbladder. Date of Admission Oct 30, 2020 at 17:15 Date Seen by a Provider: Oct 31, 2020 Time Seen by a Provider: 09:10 I consulted on this patient on 10/31/20 09:10 Attending Physician Cesilia Kitchen DO Admitting Physician Brando Soria MD Consult Allergies and Home Medications Allergies Coded Allergies: No Known Drug Allergies (Unverified , 09/07/19) Home Medications Docusate Sodium 100 Mg Capsule, 100 MG PO BID, (Reported) Last Action: Reviewed Ibuprofen 800 Mg Tablet, 800 MG PO Q6H PRN for PAIN-MILD, (Reported) Last Action: Reviewed Oxycodone HCl/Acetaminophen 1 Each Tablet, 1 EA PO Q4H PRN for PAIN-MODERATE (5- 7), (Reported) Last Action: Reviewed Patient Home Medication List Home Medication List Reviewed: Yes Past Xtljuai-Vtgvut-Dqxeql Hx Patient Social History Smoking Status: Current Someday Smoker Former Smoker, Quit: Feb 19, 2020 Type Used: Cigarettes 2nd Hand Smoke Exposure: Yes Recent Hopitalizations: No Alcohol Use?: No Have you traveled recently?: No Immunizations Up To Date PED Vaccines UTD: Yes Seasonal Allergies Seasonal Allergies: Yes Surgeries History of Surgeries: Yes (pilondal cyst removed x2, CS X2) Surgeries: Section, Tonsillectomy Respiratory History of Respiratory Disorde: No Cardiovascular History of Cardiac Disorders: No Neurological History of Neurological Disord: No Reproductive System Hx Reproductive Disorders: No Sexually Transmitted Disease: No HIV/AIDS: No Female Reproductive Disorders: Denies Genitourinary History of Genitourinary Disor: No Gastrointestinal History of Gastrointestinal Di: Yes Gastrointestinal Disorders: Gastroesophageal Reflux Musculoskeletal History of Musculoskeletal Dis: Yes Musculoskeletal Disorders: Chronic Back Pain Endocrine History of Endocrine Disorders: No (borderline GDM) HEENT History of HEENT Disorders: Yes (GLASSES) Loss of Vision: Denies Hearing Impairment: Denies Cancer History of Cancer: No Psychosocial History of Psychiatric Problem: No Integumentary History of Skin or Integumenta: No Blood Transfusions History of Blood Disorders: No Adverse Reaction to a Blood Tr: No (N/A) Reviewed Nursing Assessment Reviewed/Agree w Nursing PMH: Yes Family Medical History Significant Family History: No Pertinent Family Hx Family Medial History: Diabetes mellitus 19 MOTHER Immunodeficiency disorder G8 SISTER Review of Systems Constitutional: No chills, No diaphoresis EENTM: No blurred vision, No double vision Respiratory: No cough, No short of breath Cardiovascular: No chest pain, No palpitations Gastrointestinal: abdominal pain, nausea, vomiting Genitourinary: No decreased output, No discharge Musculoskeletal: No back pain, No joint pain Skin: No change in color, No change in hair/nails Psychiatric/Neurological: Denies Anxiety, Denies Depressed, Denies Emotional Problems All Other Systems Reviewed Negative Unless Noted: Yes (Negative excepted noted.) Physical Exam Vital Signs Vital Signs - First Documented 10/30/20 10/30/20 13:53 18:52 Temp 36.7 Pulse 65 Resp 18 B/P (MAP) 135/77 (96) Pulse Ox 98 O2 Delivery Room Air Capillary Refill : Less Than 3 Seconds Height, Weight, BMI Height: 5'5.00" Weight: 183lbs. 0.0oz. 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 Norm as Tested Skin: Normal Color, Warm/Dry Lymphatic: No Adenopathy Data Review Labs Laboratory Tests 10/30/20 14:20: White Blood Count 9.9, Red Blood Count 4.95, Hemoglobin 14.3, Hematocrit 44, Mean Corpuscular Volume 90, Mean Corpuscular Hemoglobin 29, Mean Corpuscular Hemoglobin Concent 32, Red Cell Distribution Width 13.0, Platelet Count 370, Mean Platelet Volume 11.7, Immature Granulocyte % (Auto) 1, Neutrophils (%) (Auto) 72, Lymphocytes (%) (Auto) 18, Monocytes (%) (Auto) 6, Eosinophils (%) (Auto) 2, Basophils (%) (Auto) 1, Neutrophils # (Auto) 7.2, Lymphocytes # (Auto) 1.8, Monocytes # (Auto) 0.6, Eosinophils # (Auto) 0.2, Basophils # (Auto) 0.1, Immature Granulocyte # (Auto) 0.1, Sodium Level 143, Potassium Level 4.0, Chloride Level 107, Carbon Dioxide Level 22, Anion Gap 14, Blood Urea Nitrogen 7, Creatinine 0.73, Estimat Glomerular Filtration Rate > 60, BUN/Creatinine Ratio 10, Glucose Level 107H, Calcium Level 9.2, Corrected Calcium 9.1, Total Bilirubin 2.0H, Aspartate Amino Transf (AST/SGOT) 351H, Alanine Aminotransferase (ALT/SGPT) 526H, Alkaline Phosphatase 331H, C-Reactive Protein High Sensitivity 0.85H, Total Protein 7.0, Albumin 4.1, Lipase 20 10/30/20 14:30: Urine Color YELLOW, Urine Clarity CLEAR, Urine pH 8.0, Urine Specific [place] 1.020, Urine Protein NEGATIVE, Urine Glucose (UA) NEGATIVE, Urine Ketones NEGATIVE, Urine Nitrite NEGATIVE, Urine Bilirubin 1+H, Urine Urobilinogen 1.0, Urine Leukocyte Esterase NEGATIVE, Urine RBC (Auto) NEGATIVE, Urine RBC NONE, Urine WBC 0-2, Urine Squamous Epithelial Cells 2-5, Urine Crystals NONE, Urine Bacteria NEGATIVE, Urine Casts NONE, Urine Mucus NEGATIVE, Urine Culture Indicated NO 10/31/20 06:16: White Blood Count 9.1, Red Blood Count 4.31, Hemoglobin 12.5, Hematocrit 38, Mean Corpuscular Volume 89, Mean Corpuscular Hemoglobin 29, Mean Corpuscular Hemoglobin Concent 33, Red Cell Distribution Width 13.1, Platelet Count 326, Mean Platelet Volume 11.6, Immature Granulocyte % (Auto) 0, Neutrophils (%) (Auto) 59, Lymphocytes (%) (Auto) 29, Monocytes (%) (Auto) 7, Eosinophils (%) (Auto) 4, Basophils (%) (Auto) 1, Neutrophils # (Auto) 5.4, Lymphocytes # (Auto) 2.7, Monocytes # (Auto) 0.7, Eosinophils # (Auto) 0.4H, Basophils # (Auto) 0.1, Immature Granulocyte # (Auto) 0.0, Sodium Level 142, Potassium Level 3.7, Chloride Level 110H, Carbon Dioxide Level 22, Anion Gap 10, Blood Urea Nitrogen 6L, Creatinine 0.69, Estimat Glomerular Filtration Rate > 60, BUN/Creatinine R atio 9, Glucose Level 95, Calcium Level 8.2L Assessment/Plan Assessment/Plan Admission Diagonsis epigastric abd pain cholelithiasis acute cholecystitis transaminitis Admission Status: Observation Assessment/Plan epigastric abd pain cholelithiasis acute cholecystitis transaminitis all of patient symptoms most likely related to gallbladder. discussed risks and benefits of lap evelyne c ioc all other indicated procedures she understands and wishes to proceed. npo on abx to OR today. CESILIA KITCHEN DO Oct 31, 2020 09:15
[2020-10-31] MEDS ORDERED: ROCURONIUM 10 MG/ML 5 ML SYRINGE IV ONE (11:42)
[2020-10-31] MEDS ORDERED: ONDANSETRON 4 MG/2 ML (SDV) Z0FRAN ONE (11:42)
[2020-10-31] MEDS ORDERED: SEVOFLURANE (ULTANE) 15 ML INHAL SOLN ONE (11:42)
[2020-10-31] MEDS ORDERED: MIDAZOLAM 2 MG/2 ML (VERSED) VIAL ONE (11:42)
[2020-10-31] MEDS ORDERED: proPOfol 200 MG/20 ML (DIPRIVAN) VIAL IV ONE (11:42)
[2020-10-31] MEDS ORDERED: fentaNYL INJ 100 MCG/2 ML AMP ONE (11:42)
[2020-10-31] MEDS ORDERED: LIDOCAINE PF 2% 5 ML (XYLOCAINE) VIAL ONE (11:42)
[2020-10-31] MEDS ORDERED: LIDOCAINE/EPI 1%-1:100,000 (XYLOCAINE) 20ML ONE (11:53)
[2020-10-31] MEDS ORDERED: ceFAZolin INJECTION 2,000 MG in WATER (STERILE) FOR INJECTION 10 ML IV ONE (14:45)
[2020-10-31] MEDS ORDERED: NEOSTIGMINE 3 MG/3 ML VIAL ONE (15:03)
[2020-10-31] MEDS ORDERED: GLYCOPYRROLATE 0.2 MG/ML (ROBINUL) 2 ML VIAL ONE (15:03)
--- NOTE | 2020-10-31 15:05 | Progress Note-Post Operative ---
Post-Operative Progess Note Surgeon (s)/Desktop Architect (s) Surgeon CESILIA HOLLAND DO Desktop Architect: Dr. Virgen to assist in retraction dissection and closure. Pre-Operative Diagnosis cholelithiasis, cholecystitis Post-Operative Diagnosis same Procedure & Operative Findings Date of Procedure 10/31/20 Procedure Performed/Findings PROCEDURE: Laparoscopic cholecystectomy with intraoperative cholangiogram. COMPLICATIONS: None. PROCEDURE: The patient was taken to the operating suite and was prepped and draped in sterile fashion. A surgical pause was performed. Just superior to the umbilicus, a 12 mm incision was made. Dissection was taken down to the fascia, which was then scored and grasped with a Ameya and the abdomen was then entered. A 0 Vicryl suture was placed in a [id number] fashion and a Bowens trocar was placed and secured. Pneumoperitoneum was achieved. A 5mm trochar place in the subxyphoid and 2 in the right upper quadrant. The gallbladder was then grasped and elevated. Slight edema around gallbladder. The cystic duct, and cystic artery were then dissected out. Clip was placed on the distal portion of the cystic duct which was then partially transected. An arrow catheter was inserted into the duct. The cholangiogram was then performed. No filing defects and contrast made its way into the duodenum. Catheter removed. Clips were placed on proximal portion of the cystic duct and then the duct was then transected. Clips were placed along the proximal and distal portion of the cystic artery which was then transected. Hook cautery was used to dissect the gallbladder from the gallbladder fossa achieving hemostasis. The gallbladder was placed in an Endobag and removed through the 12 mm trocar site. The abdomen was then reinspected. Copious amounts of irrigation were used to irrigate the abdomen and there were no signs of active bleeding. Hemostasis had been achieved. The 12 mm fascial defect was then closed with 0 Vicryl suture that had been placed in a [id number] fashion. The abdomen was then desufflated, the trocars were removed. The abdomen was then washed and dried. The skin was then closed using 4-0 Monocryl in a subcuticular fashion. The abdomen was washed and dried and Skin Affix was place over incisions. Patient tolerated the procedure well without any complications and was taken to the recovery room in stable condition. Anesthesia Type general Estimated Blood Loss Estimated blood loss (mL): minimal Specimens/Packing Specimens Removed gallbladder HOLLAND,CESILIA D DO Oct 31, 2020 15:05
--- NOTE | 2020-10-31 15:07 | Discharge Inst-Simple/Standard ---
Discharge Inst-Standard Patient Instructions/Follow Up Plan of Care/Instructions/FU: 2 weeks Imtiaz Activity as Tolerated: No Discharge Diet: Regular Diet Other Inst to Patient Follow up Appt: Make appointment for 2 weeks. Instructions: No lifting greater than 10 pounds. No strenuous activity. May shower in 24 hours, no tub bath or soaking. Use incentive spirometer at home as directed. No Smoking Skin/Wound Care: You have special glue over incision, it will fall off on it's own. Symptoms to Report: Appetite Changes, Extremity Discoloration, Numbness/Tingling, Swelling Increased, Bleeding Excessive, Eyesight Changes, Pain Increased, Urine Color Change, Constipation(Persistent), Fever over 101 degree F, Pain/Pressure in chest, Urinating Difficulty, Cough Up/Vomit Blood, Heart Beat Irreg/Pounding, Pain/Pressure in jaw, Vaginal Bleeding Increase, Cramps in feet or legs, Lightheadedness, Pain/Pressure in shoulder, Diarrhea(Persistent), Memory Changes Suddenly, Questions/Concerns, Weight gain consecutive days, Dizziness/Fainting, Nausea/Vomiting, Shortness of Breath, Weight gain over 2 pounds. If eyes or skin turn yellow notify physician. If questions or concerns contact your physician Or seek help at emergency department. CSEILIA HOLLAND DO Oct 31, 2020 15:07
[2020-10-31] MEDS ORDERED: KETOROLAC 30 MG/ML VIAL ONE (15:10)
--- NOTE | 2020-10-31 15:24 | Diagnostic Imaging Report ---
INDICATION: Fluoroscopy during intraoperative cholangiogram. Fluoroscopy was performed in the OR during intraoperative cholangiogram. 23 seconds of fluoroscopic time utilized. 41 images were obtained. Images demonstrate contrast being injected via the cystic duct remnant. Intrahepatic extrahepatic bile ducts are normal caliber. There are no filling defects. Contrast passes into the duodenum. IMPRESSION: Fluoroscopy during intraoperative cholangiogram. Dictated by: Dictated on workstation # [id number]
[2020-10-31] MEDS ORDERED: morphine INJ 10 MG/ML 1ML (SYR OR VIAL) IVP ONE (15:30)
[2020-10-31] MEDS ORDERED: ONDANSETRON 4 MG/2 ML (SDV) Z0FRAN IVP PRN (15:30)
[2020-10-31] MEDS ORDERED: HYDROmorphone 2 MG/ML VIAL (DILAUDID) IV ONE (15:30)
[2020-10-31] MEDS ORDERED: morphine INJ 10 MG/ML 1ML (SYR OR VIAL) ONE (15:37)
[2020-10-31] MEDS ORDERED: KETOROLAC 30 MG/ML VIAL IVP ONE (15:45)
--- NOTE | 2020-10-31 16:24 | Anesthesia-General Post-Op ---
General Patient Condition Mental Status/LOC: Same as Preop Cardiovascular: Satisfactory Nausea/Vomiting: Absent Respiratory: Satisfactory Pain: Controlled Complications: Absent Post Op Complications Complications None Follow Up Care/Instructions Patient Instructions None needed. Anesthesia/Patient Condition Patient Condition Patient is doing well, no complaints, stable vital signs, no apparent adverse anesthesia problems. No complications reported per nursing. SEB GLEASON CRNA Oct 31, 2020 16:24
== END 2020-10-31 18:25 | disposition home or self-care (01) ==
LOC: EDUNIT# 13:33 → ER 13:35 → UNDOADMOB 17:15 → 4TH 17:15 → SDC 20:30 → 4TH 20:30 → UNDODISOB 10-31 18:25 → SDC 10-31 18:25
PROVIDERS: ATTEND Surgery
DX: K80.10 Calculus of gallbladder with chronic cholecystitis without obstruction (principal); K21.9 Gastro-esophageal reflux disease without esophagitis; R74.01 Elevation of levels of liver transaminase levels; G89.29 Other chronic pain; F17.210 Nicotine dependence, cigarettes, uncomplicated; Z79.899 Other long term (current) drug therapy; Z79.891 Long term (current) use of opiate analgesic; Z79.1 Long term (current) use of non-steroidal anti-inflammatories (NSAID)
CPT/HCPCS: 36415; 76000; 76705; 80048; 80053; 81000; 83690; 85025; 86141; 87081; G0378

== ENCOUNTER 2020-12-06 05:33 | Outpatient (CLI) | payer MEDICAID ==
[~2020-12-06] VITALS: Ht 169 cm; Wt 90.9 kg
[~2020-12-06 05:33] MED LIST changes: +DOCU-26 PO
--- NOTE | 2020-12-06 08:49 | Progress Note-Pre Operative ---
Pre-Operative Progress Note H&P Reviewed The H&P was reviewed, patient examined and no changes noted. Date Seen by Provider: Dec 06, 2020 Date H&P Reviewed: Dec 06, 2020 Pre-Operative Diagnosis: Menorrhagia/chronic pelvic pain/endometriosis/uterine mass MATTHEW JAY MD Dec 06, 2020 08:49
--- NOTE | 2020-12-06 08:50 | Progress Note-Post Operative ---
Post-Operative Progess Note Surgeon (s)/Manager Hospitality (s) Surgeon MATTHEW JAY MD Pre-Operative Diagnosis Menorrhagia/chronic pelvic pain/endometriosis/uterine mass Post-Operative Diagnosis Same with pathology pending Procedure & Operative Findings Date of Procedure 12/06/20 Procedure Performed/Findings Total laparoscopic hysterectomy with right salpingo-oophorectomy and left salpingectomy and appendectomy Anesthesia Type GETA Specimens/Packing Specimens Removed Uterus both fallopian tubes right ovary appendix Packing: None MATTHEW JAY MD Dec 06, 2020 08:50
== END 2020-12-06 11:29 | disposition home or self-care (01) ==
LOC: PREOP 05:33
PROVIDERS: ATTEND Obstetrics & Gynecology
DX: Z01.818 Encounter for other preprocedural examination (principal)

== ENCOUNTER 2020-12-14 07:59 | Day surgery (SDC) | payer MEDICAID ==
[~2020-12-14] VITALS: Ht 169 cm; Wt 90.9 kg
[2020-12-14] VITALS (10 sets, daily range): BP systolic 125–143; BP diastolic 73–91
[2020-12-14] MEDS ORDERED: LIDOCAINE/EPI 1%-1:100,000 (XYLOCAINE) 20ML ONE (08:03)
[2020-12-14] MEDS ORDERED: ceFAZolin INJECTION 1,000 MG in WATER (STERILE) FOR INJECTION 10 ML IV ONE (08:15)
[2020-12-14] MEDS: LACTATED RINGERS 1,000 ML IV PRN ×2 (08:35→11:18)
[2020-12-14 08:50] LABS: BASOPHILS % (AUTO) 0 % (0-10); EOSINOPHILS # (AUTO) 0.3 10^3/uL (0.0-0.3); EOSINOPHILS % (AUTO) 3 % (0-10); HEMATOCRIT 46 % (35-52); HEMOGLOBIN 15.3 g/dL (11.5-16.0); LYMPHOCYTES # (AUTO) 2.4 10^3/uL (1.0-4.0); LYMPHOCYTES % (AUTO) 24 % (12-44); MEAN CORPUSCULAR HEMOGLOBIN 30 pg (25-34); MEAN CORPUSCULAR HGB CONC 34 g/dL (32-36); MEAN CORPUSCULAR VOLUME 89 fL (80-99); MEAN PLATELET VOLUME 11.7 fL (9.0-12.2); MONOCYTES # (AUTO) 0.7 10^3/uL (0.0-1.0); MONOCYTES % (AUTO) 7 % (0-12); NEUTROPHILS # (AUTO) 6.6 10^3/uL (1.8-7.8); NEUTROPHILS % (AUTO) 66 % (42-75); PLATELET COUNT 297 10^3/uL (130-400)
[2020-12-14] MEDS ORDERED: LIDOCAINE PF 2% 5 ML (XYLOCAINE) VIAL ONE (09:07)
[2020-12-14] MEDS ORDERED: fentaNYL INJ 100 MCG/2 ML AMP ONE ×3 (09:07→12:46)
[2020-12-14] MEDS ORDERED: proPOfol 200 MG/20 ML (DIPRIVAN) VIAL IV ONE (09:07)
[2020-12-14] MEDS ORDERED: ONDANSETRON 4 MG/2 ML (SDV) Z0FRAN ONE (09:07)
[2020-12-14] MEDS ORDERED: ROCURONIUM 10 MG/ML 5 ML SYRINGE IV ONE (09:07)
[2020-12-14] MEDS ORDERED: MIDAZOLAM 2 MG/2 ML (VERSED) VIAL ONE (09:07)
[2020-12-14] MEDS ORDERED: IBUP-1780 PO (09:54)
[2020-12-14] MEDS ORDERED: DCS100C PO (09:54)
[2020-12-14] MEDS ORDERED: OXYC1TAB87 PO (09:54)
--- NOTE | 2020-12-14 09:56 | Discharge Inst-Surgical ---
Discharge Inst-Surgical Depart Medication/Instructions New, Converted or Re-Newed RX: Transmitted to Pharmacy Consults/Follow Up Patient Instructions: As directed Orders & Referrals Follow Up Appt: Return to clinic on Thursday, December 18, 2020 at 9:30 AM for staple removal Call to make follow up appt. for patient in 4 weeks. Activity: Rest for 24 hours, than as tolerated. Wound Care: May remove Band-Aid tomorrow. Replace as desired. Keep incisions clean and dry. Wash daily with soap and water. Diet: As tolerated may shower or tub bathe as desired. No driving for 24 hours, no alcoholic beverages for 24 hours, and nothing per vagina (no tampons, douching, or intercourse) for 8 weeks. Patient to return to the clinic as soon as possible for: Temperature greater than 101F, Severe Pain, Foul discharge from incision or vagina, Excessive Bleeding (more than a period). Activity Activity as Tolerated: No Diet Discharge Diet: No Restrictions MATTHEW JAY MD Dec 14, 2020 09:56
--- NOTE | 2020-12-14 09:57 | Progress Note-Pre Operative ---
Pre-Operative Progress Note H&P Reviewed The H&P was reviewed, patient examined and no changes noted. Date Seen by Provider: Dec 14, 2020 Time Seen by Provider: 09:57 Date H&P Reviewed: Dec 14, 2020 Time H&P Reviewed: 09:57 Pre-Operative Diagnosis: TAMAR-3 MATTHEW JAY MD Dec 14, 2020 09:57
--- NOTE | 2020-12-14 09:57 | Progress Note-Post Operative ---
Post-Operative Progess Note Surgeon (s)/Kitchen And Counter Worker (s) Surgeon MATTHEW JAY MD Kitchen And Counter Worker: Kalani Pre-Operative Diagnosis TAMAR-3 Post-Operative Diagnosis Same with pathology pending Procedure & Operative Findings Date of Procedure 12/14/20 Procedure Performed/Findings TLH with bilateral salpingectomy And with appendectomy Anesthesia Type GETA Estimated Blood Loss Estimated blood loss (mL): Minimal Specimens/Packing Specimens Removed Uterus and fallopian tubes And appendix MATTHEW JAY MD Dec 14, 2020 09:57
[2020-12-14] MEDS ORDERED: D5 LR IV SOLUTION 1,000 ML IV SCH (10:00)
[2020-12-14] MEDS ORDERED: ONDANSETRON 4 MG/2 ML (SDV) Z0FRAN IVP PRN ×3 (10:00→11:30)
[2020-12-14] MEDS ORDERED: fentaNYL INJ 100 MCG/2 ML AMP IVP PRN (10:00)
[2020-12-14] MEDS ORDERED: KETOROLAC 30 MG/ML VIAL IVP SCH ×2 (10:00→18:00)
[2020-12-14] MEDS ORDERED: oxyCODONE/APAP 5/325MG (PERCOCET 5) TABLET PO PRN (10:00)
[2020-12-14] MEDS ORDERED: SEVOFLURANE (ULTANE) 15 ML INHAL SOLN ONE (11:07)
[2020-12-14] MEDS ORDERED: morphine INJ 10 MG/ML 1ML (SYR OR VIAL) IVP ONE (11:30)
[2020-12-14] MEDS ORDERED: HYDROmorphone 2 MG/ML VIAL (DILAUDID) IV ONE (11:30)
[2020-12-14] MEDS ORDERED: KETOROLAC 30 MG/ML VIAL ONE (11:36)
[2020-12-14] MEDS ORDERED: morphine INJ 10 MG/ML 1ML (SYR OR VIAL) ONE (11:47)
--- NOTE | 2020-12-14 14:38 | OPERATIVE REPORT ---
DATE OF SERVICE: 12/14/2020 PREOPERATIVE DIAGNOSIS: TAMAR 3. POSTOPERATIVE DIAGNOSES: TAMAR 3 with overt appendicitis. OPERATIVE PROCEDURE: Total laparoscopic hysterectomy with bilateral salpingectomies as well as laparoscopic appendectomy. OPERATIVE DESCRIPTION: With the patient in supine position under satisfactory general anesthesia, she was repositioned in dorsal lithotomy position in the [facility] and prepped and draped in the usual fashion for abdominal and vaginal surgery. A weighted speculum placed in posterior fornix of vagina, the cervix exposed and grasped anteriorly with single tooth tenaculum. Uterus sounded to 11 cm with uterine sound. The cervix was then serially dilated with Fee dilators to accommodate a Iqra II manipulator, which was placed using a 6 mm x 8 cm uterine probe and a 25 mm colpotomy ring. Sutures of #1 Vicryl were placed at 3 and 9 o'clock position of the cervix to affix the uterus to the manipulator. The tenaculum and speculum were removed. Pérez catheter was placed in the urinary bladder. The patient was brought in low dorsal lithotomy position. A 12 mm incision was made in the midline superior to the umbilicus by 10 cm. Veress needle was placed through that incision, correct placement confirmed with water drop test and the abdomen was insufflated with 2.4 liters of carbon dioxide. The Veress needle was removed and a 12 mm Optiview laparoscopic port was placed. The abdominal wall transilluminated, and 8 mm ports were placed through incisions of those sizes 8 cm lateral to the umbilicus and approximately 3 cm above the umbilicus. All three port sites were infiltrated with 1% lidocaine with epinephrine prior to incision and port placement. The patient was placed in Trendelenburg allowing the bowel spill out of the pelvis. The da Deandra column was advanced on the patient and docked, and operative instrument placed in right and left lateral ports and I retired to the da Deandra console. At the console using the vessel sealer on the right and bipolar scissors, fenestrated grasper on the left, the pelvis was first examined. Both ovaries appeared normal. There was endometriosis on the posterior surface of the uterus and then the ovarian fossae bilaterally. The fallopian tubes appeared normal. Laparoscope was rotated. The appendix appeared to be overtly inflamed. Decision was made to go ahead with appendectomy due to its appearance. The mesoappendix was clamped, cauterized and divided with the vessel sealer over to the base of the appendix and the appendix was left in situ for removal later. The attention was brought back to the pelvis. The right fallopian tube was grasped and elevated. The mesosalpinx was clamped, cauterized and divided with the vessel sealer that was continued stepwise across to the uteroovarian pedicle, which was clamped, cauterized and divided also with the vessel sealer that was continued down across the round ligament, across the broad ligaments and down onto the cardinal ligament. Same procedure performed on the left, allowing for removal of both fallopian tubes eventually with the uterus. The anterior lower uterine segment peritoneum was exposed and using a monopolar shear on the right, the anterior lower uterine segment peritoneum was divided. This was done carefully as the patient had had a . There was some scar tissue in this area with the bladder free. A colpotomy incision was started at 12 o'clock position onto the colpotomy ring that was continued circumferentially until the entire colpotomy ring was exposed and then the uterus with the tubes still attached was extracted through the vagina. The vaginal cuff was closed with running locked suture of V-Loc barbed suture starting from the right angle and continuing all the way across the cuff to the left angle. Care was taken to ensure inclusion of the uterine vessel pedicles bilaterally in the angle stitches of the vagina. The pelvis was examined for hemostasis that was complete. At this point, the da Deandra portion of the procedure was halted. The operative instruments were removed under direct vision. The da Deandra column was undocked and removed from the patient. Using the scope in the right lateral port, a grasper in the left lateral port and an Endo-BALDEMAR in the umbilical port, the appendix was grasped and elevated. The Endo-BALDEMAR was placed across the base of the appendix and fired, severing the appendix from its attachments. The appendix was placed in an Endobag and brought out through the umbilical port. The stump of the appendix was copiously irrigated and then the pelvis was irrigated as well. The irrigant was all aspirated out. The stump of the appendix was then treated with several drops of Betadine solution. With the procedure complete, no significant bleeding and no remaining pathology, the procedure was terminated. The operative instruments were removed under direct vision as were the ports. The abdomen was evacuated of the insufflating gas in the process of removing the ports. The skin incisions were closed with eugenie after closing the fascia at the supraumbilical incision with tuqmzi-hv-globz suture of 2-0 Vicryl. Speculum was replaced in the vagina. The vaginal cuff was examined and found to be completely hemostatic and completely reapproximated. Pérez catheter was left to dependent drainage. Sponge and needle counts were correct. Blood loss was less than 100 mL. The patient tolerated the procedure well and was uneventfully awakened from her general anesthesia and transferred to the recovery room in stable condition. Job ID: [id number] DocumentID: [id number] Dictated Date: 12/14/2020 11:11:30 Director Of Student Financial Aid Date: 12/14/2020 14:37:04 Dictated By: MATTHEW JAY MD
[2020-12-14] MEDS ORDERED: DOCUSATE SODIUM 100 MG (COLACE) CAP PO SCH (21:00)
[2020-12-15] MEDS ORDERED: DOCUSATE SODIUM 100 MG (COLACE) CAP PO SCH (09:00)
--- NOTE | 2020-12-15 11:23 | Anesthesia-General Post-Op ---
General Patient Condition Mental Status/LOC: Same as Preop Cardiovascular: Satisfactory Nausea/Vomiting: Absent Respiratory: Satisfactory Pain: Controlled Complications: Absent Post Op Complications Complications None Follow Up Care/Instructions Patient Instructions None needed. Anesthesia/Patient Condition Patient Condition Patient is doing well, no complaints, stable vital signs, no apparent adverse anesthesia problems. No complications reported per nursing. SEBASTIÁN MOSQUEDA CRNA Dec 15, 2020 11:23
[2020-12-15] MEDS ORDERED: IBUPROFEN 800 MG (MOTRIN) TAB PO SCH (12:00)
== END 2020-12-14 18:35 | disposition home or self-care (01) ==
LOC: SDC 07:59 → WS 11:48 → SDC 18:35
PROVIDERS: ATTEND Obstetrics & Gynecology
DX: D06.9 Carcinoma in situ of cervix, unspecified (principal); N84.0 Polyp of corpus uteri; K36 Other appendicitis; K38.8 Other specified diseases of appendix; K21.9 Gastro-esophageal reflux disease without esophagitis; Z79.899 Other long term (current) drug therapy; Z98.890 Other specified postprocedural states; Z87.891 Personal history of nicotine dependence
CPT/HCPCS: 36415; 84703; 85025; 86850; 86900; 86901; 87081

== ENCOUNTER 2020-12-22 11:39 | Emergency (ER) | payer MEDICAID ==
[~2020-12-22] VITALS: Ht 167 cm; Wt 90.7 kg
[~2020-12-22 11:39] MED LIST changes: +OXYC1TAB87 PO
--- NOTE | 2020-12-22 12:51 | ED Integumentary General ---
General Chief Complaint: Skin/Wound Problems Stated Complaint: POST HISTRECTOMY, INSITION LEAKING Nursing Triage Note: PT PRESENTS TO ED WITH COMPLAINTS OF HYSTERECTOMY INCISION DEHISS THIS AM WHEN PICKING UP HER . Source: patient Exam Limitations: no limitations History of Present Illness Date Seen by Provider: Dec 22, 2020 Time Seen by Provider: 12:15 Initial Comments This 30-year-old young lady presents to the emergency room with complaint of dark serosanguineous drainage from an epigastric surgical incision after having hysterectomy December 14. The incision is not particularly painful. There is significant bruising around it but no heat or erythema. The drainage consists of dark serosanguineous fluid but does not appear purulent and does not have foul odor. Andi were removed Thursday and there is no Steri-Strip on this particular incision. Allergies and Home Medications Allergies Coded Allergies: No Known Drug Allergies (Unverified , 09/07/19) Patient Home Medication List Home Medication List Reviewed: Yes Docusate Sodium (Dok) 100 Mg Capsule, 100 MG PO BID Prescribed by: MATTHEW MARTIN on 12/14/20 0954 Ibuprofen (Ibuprofen) 800 Mg Tablet, 800 MG PO Q6HR Prescribed by: MATTHEW MARTIN on 12/14/20 0954 Oxycodone HCl/Acetaminophen (Percocet 5-325 mg Tablet) 1 Each Tablet, 1 TAB PO Q4H PRN for PAIN-MODERATE (5-7) Prescribed by: MATTHEW MARTIN on 12/14/20 0955 Review of Systems Review of Systems Constitutional: no symptoms reported EENTM: no symptoms reported Respiratory: no symptoms reported Cardiovascular: no symptoms reported Gastrointestinal: no symptoms reported Genitourinary: no symptoms reported : No Musculoskeletal: no symptoms reported Skin: see HPI Psychiatric/Neurological: No Symptoms Reported Endocrine: No Symptoms Reported Hematologic/Lymphatic: No Symptoms Reported Past Bqbsdjg-Cfmiiz-Heqmdm Hx Patient Social History Tobacco Use?: Yes Tobacco type used: Cigarettes Smoking Status: Current Someday Smoker Substance use?: No Alcohol Use?: No Pt feels they are or have been: No Immunizations Up To Date PED Vaccines UTD: Yes First/Initial COVID19 Vaccinat: NO Second COVID19 Vaccination Landen: NO Seasonal Allergies Seasonal Allergies: Yes Past Medical History Surgery/Hospitalization HX: sx: c-sec, hyst, gallbladder, appy Surgeries: Yes (pilondal cyst removed x2, CS X3) Section, Gallbladder, Tonsillectomy Respiratory: No Currently Using CPAP: No Currently Using BIPAP: No Cardiac: No Neurological: No Reproductive Disorders: No Female Reproductive Disorders: Denies Sexually Transmitted Disease: No HIV/AIDS: No Genitourinary: No Gastrointestinal: Yes Gastroesophageal Reflux Musculoskeletal: Yes Chronic Back Pain Endocrine: No (borderline GDM) HEENT: Yes (GLASSES) Loss of Vision: Denies Hearing Impairment: Denies Cancer: Yes Cervical (TAMAR-3 cervical dysplasia) Did You Recieve Any Treatments: Yes What Type of Treatment Did You: Surgical Intervention Psychosocial: No Integumentary: No Blood Disorders: No Adverse Reaction/Blood Tranf: No (N/A) Family Medical History Diabetes mellitus 19 MOTHER Immunodeficiency disorder G8 SISTER No Pertinent Family Hx Physical Exam Vital Signs Vital Signs - First Documented 12/22/20 11:51 Temp 36.6 Pulse 89 Resp 18 B/P (MAP) 140/92 (108) Pulse Ox 98 Capillary Refill : Less Than 3 Seconds General Appearance: WD/WN, no apparent distress Respiratory: no respiratory distress Extremities: normal inspection Neurologic/Psychiatric: alert, normal mood/affect, oriented x 3 Skin: normal color, warm/dry, ecchymosis, other (There is a surgical incision in the epigastric region with a punctate opening in the center of the incision draining dark serosanguineous fluid. There is surrounding ecchymosis. The inferior aspect of the incision has a nickel sized area of induration.) Progress/Results/Core Measures Results/Orders Vital Signs/I&O 12/22/20 12/22/20 11:51 13:01 Temp 36.6 36.6 Pulse 89 80 Resp 18 18 B/P (MAP) 140/92 (108) 128/87 Pulse Ox 98 99 Blood Pressure Mean: 108 Progress Progress Note : Progress Note After examining the patient and feeling the area of induration inferior to the incision I believe she likely had a small hematoma or seroma that is now leaking through the incision. There does not appear to be any sign of cellulitis or abscess. Drainage is dark serosanguineous and does not appear purulent or foul- smelling. There is no unusual tenderness, erythema, or heat in the area. I advised the patient to allow it to continue draining. Absorbent dressing was applied over the incision. See discharge instructions for further discussion. Departure Impression Primary Impression: Wound dehiscence, surgical Qualified Codes: T81.31XA - Disruption of external operation (surgical) wound, not elsewhere classified, initial encounter Disposition: 01 HOME, SELF-CARE Condition: Stable Departure-Patient Inst. Decision time for Depature: 12:49 Referrals: ABBY HERNÁNDEZ MD (PCP/Family) Primary Care Physician Patient Instructions: Wound Dehiscence Add. Discharge Instructions: You likely had a small hematoma under your skin incision that is now draining. Keep covered with an absorbent dressing while it is draining. This will help it stay clean and contain the drainage. Monitor the wound for signs of infection such as increasing redness, heat, or puslike drainage. Purely bloody or yellowish drainage is less concerning than puslike drainage. Please return to the ER if you notice any signs of infection or would like the wound reevaluated. The wound will likely continue to drain for a few more days. The opening should gradually close up. If the wound is still open and draining on Thursday, please contact Dr. Alfaro's office for further evaluation. Keep the wound clean and dry except for normal showering. Do not submerge until the wound is closed over. Call with questions or concerns. Dr. Gonzáles will be working this weekend Thursday, Thursday, and Thursday from 6 AM to 6 PM if you have any concerns to discuss with him. All discharge instructions reviewed with patient and/or family. Voiced unde rstanding. Copy Copies To 1: MATTHEW ALFARO MD, JOSHUA T MD Dec 22, 2020 12:51
[2020-12-22 13:01] VITALS: BP 128/87
== END 2020-12-22 13:01 | disposition home or self-care (01) ==
LOC: EDUNIT# 11:39 → ER 11:42
DX: T81.32XA Disruption of internal operation (surgical) wound, not elsewhere classified, initial encounter (principal); G89.29 Other chronic pain; M54.9 Dorsalgia, unspecified; F17.210 Nicotine dependence, cigarettes, uncomplicated; Z79.891 Long term (current) use of opiate analgesic; Z79.899 Other long term (current) drug therapy

== ENCOUNTER 2022-02-04 05:39 | Outpatient (CLI) | payer MEDICAID ==
[~2022-02-04] VITALS: Ht 167.7 cm; Wt 95.4 kg
[~2022-02-04 05:39] MED LIST changes: -DCS100C PO; +DOCU-239 PO
[2022-02-04] MEDS ORDERED: NORG1TAB14 PO (09:55)
[2022-02-06] MEDS ORDERED: IBUP-1780 PO (12:57)
[2022-02-06] MEDS ORDERED: OXYC-199 PO (12:57)
== END 2022-02-04 10:14 | disposition home or self-care (01) ==
LOC: PREOP 05:39
PROVIDERS: ATTEND Obstetrics & Gynecology
DX: Z01.818 Encounter for other preprocedural examination (principal)

== ENCOUNTER 2022-02-06 11:18 | Day surgery (SDC) | payer MEDICAID ==
[~2022-02-06] VITALS: Ht 167.7 cm; Wt 95.4 kg
[2022-02-06] VITALS (9 sets, daily range): BP systolic 112–135; BP diastolic 69–93
[~2022-02-06 11:18] MED LIST changes: +NORG1TAB14 PO
[2022-02-06] MEDS ORDERED: ceFAZolin INJECTION 1,000 MG in NS (IVPB) 50 ML IV ONE (11:30)
[2022-02-06] MEDS: LACTATED RINGERS 1,000 ML IV PRN ×2 (11:56→13:34)
[2022-02-06] MEDS ORDERED: LIDOCAINE PF 2% 5 ML (XYLOCAINE) VIAL ONE (12:01)
[2022-02-06] MEDS ORDERED: fentaNYL INJ 100 MCG/2 ML AMP ONE (12:01)
[2022-02-06] MEDS ORDERED: MIDAZOLAM 2 MG/2 ML (VERSED) VIAL ONE (12:01)
[2022-02-06] MEDS ORDERED: NEOSTIGMINE (BLOXIVERZ ) 1 MG/1ML 10 ML VIAL ONE (12:01)
[2022-02-06] MEDS ORDERED: proPOfol 200 MG/20 ML (DIPRIVAN) VIAL IV ONE (12:01)
[2022-02-06] MEDS ORDERED: GLYCOPYRROLATE 0.2 MG/ML (ROBINUL) 2 ML VIAL ONE (12:01)
[2022-02-06] MEDS ORDERED: ROCURONIUM 10 MG/ML 5 ML SYRINGE IV ONE (12:01)
[2022-02-06] MEDS ORDERED: ONDANSETRON 4 MG/2 ML (SDV) Z0FRAN ONE (12:01)
[2022-02-06 12:06] LABS: BASOPHILS % (AUTO) 0 % (0-10); EOSINOPHILS # (AUTO) 0.2 10^3/uL (0.0-0.3); EOSINOPHILS % (AUTO) 1 % (0-10); HEMATOCRIT 44 % (35-52); LYMPHOCYTES # (AUTO) 2.7 10^3/uL (1.0-4.0); LYMPHOCYTES % (AUTO) 23 % (12-44); MEAN CORPUSCULAR HEMOGLOBIN 29 pg (25-34); MEAN CORPUSCULAR HGB CONC 34 g/dL (32-36); MEAN CORPUSCULAR VOLUME 86 fL (80-99); MEAN PLATELET VOLUME 11.1 fL (9.0-12.2); MONOCYTES # (AUTO) 0.7 10^3/uL (0.0-1.0); MONOCYTES % (AUTO) 6 % (0-12); NEUTROPHILS # (AUTO) 8.1 10^3/uL (1.8-7.8); NEUTROPHILS % (AUTO) 69 % (42-75); PLATELET COUNT 298 10^3/uL (130-400); WHITE BLOOD COUNT 11.7 10^3/uL (4.3-11.0)
[2022-02-06] MEDS ORDERED: LIDOCAINE/EPI 1%-1:100,000 (XYLOCAINE) 10 ML ONE (12:26)
--- NOTE | 2022-02-06 12:54 | Progress Note-Pre Operative ---
Pre-Operative Progress Note Date of Available H&P: Feb 06, 2022 Date H&P Reviewed: Feb 06, 2022 Time H&P Reviewed: 12:54 History & Physical: H&P Reviewed, No changes noted Pre-Operative Diagnosis: Chronic Right lower quadrant pain history of endometriosis MATTHEW JAY MD Feb 06, 2022 12:54
--- NOTE | 2022-02-06 12:55 | Progress Note-Post Operative ---
Post-Operative Progess Note Surgeon (s)/Spare Hand Carding (s) Surgeon MATTHEW JAY MD Spare Hand Carding: Les Pre-Operative Diagnosis Chronic Right lower quadrant pain history of endometriosis Post-Operative Diagnosis Same with pathology pending Procedure & Operative Findings Date of Procedure 02/06/22 Procedure Performed/Findings Laparoscopic right oophorectomy Anesthesia Type General anesthesia Estimated Blood Loss Estimated blood loss (mL): min Specimens/Packing Specimens Removed Right ovary MATTHEW JAY MD Feb 06, 2022 12:55
[2022-02-06] MEDS ORDERED: IBUP-1780 PO (12:57)
[2022-02-06] MEDS ORDERED: OXYC-199 PO (12:57)
--- NOTE | 2022-02-06 12:59 | Discharge Inst-Surgical ---
Discharge Inst-Surgical Depart Medication/Instructions New, Converted or Re-Newed RX: Transmitted to Pharmacy Consults/Follow Up Patient Instructions: As directed Orders & Referrals Follow Up Appt: Call to make follow up appt. for patient in 1 week suture Removal. Activity: Rest for 24 hours, than as tolerated. Wound Care: May remove Band-Aid tomorrow. Replace as desired. Keep incisions clean and dry. Wash daily with soap and water. Prescriptions for Percocet and Motrin have been transmitted electronically to patient's pharmacy Diet: As tolerated shower or tub bathe as desired. Patient to return to the clinic as soon as possible for: Temperature greater than 101F, Severe Pain, Foul discharge from incision or vagina, Excessive Bleeding (more than a period). Activity Activity as Tolerated: No Diet Discharge Diet: No Restrictions MATTHEW JAY MD Feb 06, 2022 12:59
[2022-02-06] MEDS ORDERED: KETOROLAC 30 MG/ML VIAL IVP ONE (13:00)
[2022-02-06] MEDS ORDERED: PROMETHAZINE INJ 25 MG/ML (PHENERGAN) AMP IM ONE (13:00)
[2022-02-06] MEDS ORDERED: D5 LR IV SOLUTION 1,000 ML IV SCH (13:00)
[2022-02-06] MEDS ORDERED: MEPERIDINE (DEMEROL) INJ 100 MG/ML IM ONE (13:00)
[2022-02-06] MEDS ORDERED: ONDANSETRON 4 MG/2 ML (SDV) Z0FRAN IVP PRN ×2 (13:00→14:15)
[2022-02-06] MEDS ORDERED: oxyCODONE/APAP 5/325MG (PERCOCET 5) TABLET PO PRN (13:00)
[2022-02-06] MEDS ORDERED: LIDOCAINE/EPI 1%-1:100,000 (XYLOCAINE) 20ML INJ ONE (13:42)
[2022-02-06] MEDS ORDERED: SEVOFLURANE (ULTANE) 15 ML INHAL SOLN ONE (14:00)
[2022-02-06] MEDS ORDERED: KETOROLAC 30 MG/ML VIAL ONE (14:00)
[2022-02-06] MEDS ORDERED: fentaNYL INJ 100 MCG/2 ML AMP IVP ONE (14:15)
[2022-02-06] MEDS ORDERED: morphine INJ 10 MG/ML 1ML (SYR OR VIAL) IVP ONE (14:15)
--- NOTE | 2022-02-06 14:15 | Anesthesia-General Post-Op ---
General Patient Condition Mental Status/LOC: Same as Preop Cardiovascular: Satisfactory Nausea/Vomiting: Absent Respiratory: Satisfactory Pain: Controlled Complications: Absent Post Op Complications Complications None Follow Up Care/Instructions Patient Instructions None needed. Anesthesia/Patient Condition Patient Condition Patient is doing well, no complaints, stable vital signs, no apparent adverse anesthesia problems. No complications reported per nursing. SEB GLEASON CRNA Feb 06, 2022 14:15
--- NOTE | 2022-02-07 01:47 | OPERATIVE REPORT ---
DATE OF SERVICE: 02/06/2022 PREOPERATIVE DIAGNOSIS: Right lower quadrant chronic pain/chronic pelvic pain. POSTOPERATIVE DIAGNOSIS: Right lower quadrant chronic pain/chronic pelvic pain. OPERATIVE PROCEDURE: Laparoscopic right salpingectomy. OPERATIVE DESCRIPTION: With the patient in supine position under satisfactory general anesthesia, she was repositioned in dorsal lithotomy position in the [facility] and prepped and draped in the usual fashion for abdominal and vaginal surgery. Urinary bladder was drained with a straight catheter. The vagina was filled with a pack of Kerlix gauze to distend the apex of the vagina. A 5 mm incision was made in the patient's left upper quadrant. Veress needle was placed through that incision into the abdominal cavity. Correct placement confirmed with a water drop test. The abdomen was insufflated with 2.4 liters of carbon dioxide and the Veress needle was removed and replaced with a 5 mm Optiview laparoscopic port. The patient was placed in Trendelenburg allowing the bowel spill out of the pelvis. A 12 mm port was placed through an incision of that size in the inferior margin of the umbilicus and a 5 mm port just above the symphysis pubis. The pelvis was examined. There was ovaries present bilaterally. The right ovary was grasped and elevated. Endo-BALDEMAR was placed across the IP ligament fired and severed the ovary from its attachments. The ovary was placed in an Endobag and brought out through the umbilical incision. There were no significant adhesions of the pelvis. There was no overt endometriosis in the pelvis. The appendix was surgically absent. With the procedure complete, the operative instruments were removed under direct vision. The abdomen was evacuated of the insufflating gas in the process of removing the three ports. The skin incisions were closed with nylon suture. The fascia at the infraumbilical incision was closed with nahtjo-ez-jlliz suture of 2-0 Vicryl as well. The packing was removed from the vagina. Sponge and needle counts were correct. Hemostasis was complete. Blood loss was minimal. The patient was uneventfully awakened from her general anesthesia and transferred to recovery room in stable condition with plans for discharge home PAR. Job ID: [id number] DocumentID: [id number] Dictated Date: 02/06/2022 16:50:43 Compensation And Benefits Advisor Date: 02/07/2022 01:46:54 Dictated By: MATTHEW JAY MD
== END 2022-02-06 16:12 ==
LOC: SDC 11:18
PROVIDERS: ATTEND Obstetrics & Gynecology
DX: N83.291 Other ovarian cyst, right side (principal); E66.9 Obesity, unspecified; Z68.33 Body mass index [BMI] 33.0-33.9, adult; F17.210 Nicotine dependence, cigarettes, uncomplicated; N80.30 Endometriosis of pelvic peritoneum, unspecified; F32.A Depression, unspecified; G89.29 Other chronic pain
CPT/HCPCS: 36415; 85025; 87081

== ENCOUNTER → 2022-06-24 | Outpatient (CLI) | payer MEDICAID ==
[~2022-06-24] MED LIST changes: +OXYC-199 PO
--- NOTE | 2022-06-24 16:27 | Diagnostic Imaging Report ---
INDICATION: PAIN OF LEFT SHOULDER. COMPARISON: None. FINDINGS: Three views of the left shoulder were obtained. There is no fracture, dislocation, or other acute bony abnormality identified. The soft tissues appear unremarkable. No radiopaque foreign body is identified. The visualized portions of the left lung are clear. IMPRESSION: No acute fractures or dislocations of the left shoulder. Dictated by: Dictated on workstation # [id number]
== END ==
LOC: ORTHO 13:05
PROVIDERS: ATTEND Orthopaedic Surgery
DX: M75.52 Bursitis of left shoulder (principal); E66.9 Obesity, unspecified
CPT/HCPCS: 73030; 99203

== ENCOUNTER → 2022-10-20 | Outpatient (CLI) | payer MEDICAID ==
--- NOTE | 2022-10-20 11:43 | Diagnostic Imaging Report ---
INDICATION: ABD PAIN COMPARISON: 07/15/2015 FINDINGS: Supine and upright views of the abdomen show a nondistended bowel gas pattern. No abnormal air fluid levels or free intraperitoneal air is seen. No abnormal extraosseous calcifications are seen. Bony and soft tissue structures are within normal limits. No organomegaly is identified. Accompanying upright chest shows normal heart size and pulmonary vascularity. The lungs are well aerated and clear. The mediastinum is normal in appearance. IMPRESSION: 1. No bowel obstruction or free air. 2. Normal chest. No pneumonia or pulmonary edema. Dictated by: Dictated on workstation # [id number]
== END ==
LOC: RAD 11:12
PROVIDERS: ATTEND Surgery
DX: R10.9 Unspecified abdominal pain (principal)
CPT/HCPCS: 74022